=== PATIENT | female | born 1990 | race American Indian/Alaskan Native ===

== ENCOUNTER 2016-12-20 12:22 | Inpatient (IN) | payer MEDICAID ==
[2016-12-20] MEDS ORDERED: DiphenhydrAMINE 50 mg/ml Inj IV STA ×2 (12:42→16:25)
[2016-12-20] MEDS ORDERED: Sodium Chloride 0.9% 1,000 ML IV STA (13:29)
[2016-12-20] MEDS ORDERED: HYDROmorphone 0.5 mg/0.5 ml ISec ONE (13:32)
[2016-12-20] MEDS ORDERED: DiphenhydrAMINE 50 mg/ml Inj ONE ×2 (13:32→16:29)
--- NOTE | 2016-12-20 13:37 | ED PDOC ---
HPI: Seizure Time Seen by Provider: 12/20/16 12:31 Chief Complaint (Nursing): Seizure Chief Complaint (Provider): Seizure History Per: Patient History/Exam Limitations: no limitations Additional Complaint(s): 26 y/o female with a past medical history of Seizure and sickle cell disease presents to the emergency department via EMS with a complaint of experiencing a seizure earlier this morning. States had a seizure due to her sickle cell pain and takes Dilaudid for the pain. Patient was seen in [place] but signed AMA due to wait and then visited [facility] where she signed AMA for the second time for failure to receive Narcotics. Reports she was in [facility] for acute chest syndrome. Patient is now complaining of lower chest and b/l lower extremity pain. Denies fever, cough, or syncope Of note, patient takes depakote; vimpat and trileptal for seizures and takes aspirin daily after experiencing a small stroke 1 year ago. Past Medical History Reviewed: Historical Data, Nursing Documentation, Vital Signs Vital Signs: Last Vital Signs Temp 97 F L 12/20/16 15:05 Pulse 92 H 12/20/16 15:05 Resp 18 12/20/16 15:05 BP 119/70 12/20/16 15:05 Pulse Ox 100 12/20/16 18:50 - Medical History PMH: Asthma, Seizures, Sickle Cell Disease - Surgical History Surgical History: No Surg Hx - Family History Family History: States: Unknown Family Hx - Immunization History Hx Tetanus Toxoid Vaccination: Yes Hx Influenza Vaccination: Yes Hx Pneumococcal Vaccination: Yes - Home Medications Home Medications: Ambulatory Orders Medication Instructions Recorded Aspirin 81 mg PO DAILY 12/20/16 DULoxetine [Cymbalta] 30 mg PO DAILY 12/20/16 DiphenhydrAMINE [Benadryl] 50 mg PO Q4H PRN 12/20/16 Divalproex [Depakote DR] 1,000 mg PO BID 12/20/16 Escitalopram [Lexapro] 20 mg PO HS 12/20/16 Famotidine [Pepcid] 20 mg PO DAILY PRN 12/20/16 Folic Acid 1 mg PO DAILY 12/20/16 HYDROmorphone [Dilaudid] 4 mg PO Q4H PRN 12/20/16 Lacosamide [Vimpat] 600 mg PO BID 05/19/17 Medroxyprogesterone Acetate 150 mg IM Q90D 12/20/16 [Depo-Provera] Oxcarbazepine [Trileptal] 300 mg PO BID 12/20/16 Trazodone HCl 150 mg PO HS 12/20/16 - Allergies Allergies/Adverse Reactions: Allergies Allergy/AdvReac Type Severity Reaction Status Date / Time ANOOP Inhibitors Allergy Verified 12/20/16 10:56 ketorolac [From Toradol] Allergy Verified 12/20/16 10:56 levetiracetam [From Keppra] Allergy Verified 12/20/16 10:56 morphine Allergy Verified 12/20/16 10:56 Review of Systems ROS Statement: Except As Marked, All Systems Reviewed And Found Negative Constitutional: Negative for: Fever Cardiovascular: Positive for: Chest Pain (Lower chest pain) Respiratory: Negative for: Cough Musculoskeletal: Positive for: Leg Pain (b/l) Neurological: Positive for: Seizures. Negative for: Other (Syncope) Physical Exam - Reviewed Nursing Documentation Reviewed: Yes Vital Signs Reviewed: Yes - Physical Exam Appears: Positive for: Non-toxic, No Acute Distress Head Exam: Positive for: ATRAUMATIC, NORMOCEPHALIC Skin: Positive for: Normal Color, Warm, Dry Eye Exam: Positive for: Normal appearance. Negative for: Scleral icterus ENT: Positive for: Normal ENT Inspection. Negative for: Pharyngeal Erythema Neck: Positive for: Normal, Supple Cardiovascular/Chest: Positive for: Tachycardia (of 105 bpm with regular rhythm) . Negative for: Murmur Respiratory: Positive for: Normal Breath Sounds. Negative for: Accessory Muscle Use, Respiratory Distress Gastrointestinal/Abdominal: Positive for: Normal Exam, Soft. Negative for: Tenderness Extremity: Positive for: Normal ROM Neurologic/Psych: Positive for: Alert, Oriented - Laboratory Results Result Diagrams: 12/20/16 13:20 12/20/16 13:20 - ECG O2 Sat by Pulse Oximetry: 100 (RA) Pulse Ox Interpretation: Normal Medical Decision Making Medical Decision Making: Time: 12:31 Initial impression: Moderate Seizure Activity Initial plan: --Type and Screen Stat --Electrocardiogram Stat --COMP Metabolic Panel --Valproic Acid STAT --EKG-ED (EDNURTX) Stat --CBC w/ differential --Partial Thromboplastin Time (COAG) --Prothrombin Time (COAG) --Reticulocyte Count Stat --Chest Two Views (PA/LAT) (RAD) --Benadryl 25 mg IV Stat --Hydromorphone 2 mg IV --Sodium Chloride 1,000 ml IV 1,000 mls/hr --Urinalysis Stat --Revaluation labs reviewed Retic count mod elevation Hgb 10.8 no prior to compare. pt said had PRBC transfusion 1 week ago when admitted for PNA and seizure depakote <10 HCG neg chem unremarkable Awaiting UA CXR no acute infiltrate per radiologist EKG interpreted by me as no acute ST changes sinus 99bpm Pt received IVF and 2 doses dilaudid, remains w symptoms and requesting admission to hospital. Given seizure, subtherapetic valproic acid, admit Obs tele for further care. 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 Scribe Attestation: Documented by Keerthi Juarez, acting as a scribe for Александр Lechuga MD. Provider Scribe Attestation: All medical record entries made by the Scribe were at my direction and personally dictated by me. I have reviewed the chart and agree that the record accurately reflects my personal performance of the history, physical exam, medical decision making, and the department course for this patient. I have also personally directed, reviewed, and agree with the discharge instructions and disposition. Disposition - Clinical Impression Clinical Impression: Epileptic seizures, Sickle cell crisis - Patient ED Disposition Is Patient to be Admitted: Yes Counseled Patient/Family Regarding: Studies Performed - Disposition Disposition Time: 17:25 Condition: STABLE
[2016-12-20 14:18] LABS: BASO # 0.1 K/uL (0.0-0.2); BASO % 0.7 % (0.0-2.0); EOS # 0.2 K/uL (0.0-0.7); EOS % 1.7 % (0.0-4.0); HEMATOCRIT 31.4 % (34.0-47.0); LYMPH # 2.7 K/uL (1.0-4.3); LYMPH % 30.2 % (20.0-40.0); MEAN CELL VOLUME 94.9 fl (81.0-99.0); MEAN CORPUSCULAR HEMOGLOBIN 31.5 pg (27.0-31.0); MEAN CORPUSCULAR HGB CONC 33.2 g/dL (33.0-37.0); MEAN PLATELET VOLUME 8.6 fl (7.2-11.7); MONO # 1.3 K/uL (0.0-0.8); MONO % 14.5 % (0.0-10.0); NEUT # 4.7 K/uL (1.8-7.0); NEUT % 52.9 % (50.0-75.0); NRBC % 0.5 % (0.0-0.0); RED CELL DISTRIBUTION WIDTH 20.4 % (11.5-14.5)
[2016-12-20 14:30] LABS: ALKALINE PHOSPHATASE 105 U/L (38-126); ALT/SGPT 19 U/L (9-52); AST/SGOT 38 U/L (14-36); BILIRUBIN,TOTAL 1.1 mg/dl (0.2-1.3); BLOOD UREA NITROGEN 13 mg/dl (7-17); CALCIUM 9.9 mg/dL (8.4-10.2); CARBON DIOXIDE 24 mmol/L (22-30); CHLORIDE 106 mmol/L (98-107); GFR AFRICAN-AMERICAN > 60; GLUCOSE,RANDOM 96 mg/dL (65-105); POTASSIUM 4.1 MMOL/L (3.6-5.0); SODIUM 139 mmol/l (132-148); TOTAL PROTEIN 7.8 G/DL (6.3-8.2)
[2016-12-20 15:25] LABS: PARTIAL THROMBOPLASTIN TIME 22.1 SECONDS (23.3-32.5)
--- NOTE | 2016-12-20 16:19 | RAD ---
HISTORY: cough hx acute chest/sickle cell COMPARISON: No prior. TECHNIQUE: Chest PA and lateral FINDINGS: LUNGS: In situ left IJ MediPort with tip in the SVC. Suspect minor bibasilar atelectasis. PLEURA: No significant pleural effusion identified. No pneumothorax apparent. CARDIOVASCULAR: Note made of a a correlate radiopaque density in the AP window on and/or overlying the aortic arch. Rule out prior era. OSSEOUS STRUCTURES: Very minor multilevel degenerative spondylosis of the thoracic spine minor chronic appearing anterior wedge deformities of least 2, possibly 3 segments mid to lower thoracic vertebral body segments. VISUALIZED UPPER ABDOMEN: Normal. OTHER FINDINGS: None. IMPRESSION: Suspect minor bibasilar atelectasis. In situ left IJ central venous line as above
[2016-12-20 16:37] LABS: RBC URINE 3 /hpf (0-3); URINE BACTERIA RARE (<OCC); URINE BILIRUBIN NEGATIVE (NEGATIVE); URINE BLOOD NEGATIVE (NEGATIVE); URINE COLOR YELLOW (YELLOW); URINE GLUCOSE (UA) NEG (Normal); URINE KETONE NEGATIVE (NEGATIVE); URINE LEUKOCYTE ESTERASE NEG Leu/uL (Negative); URINE PROTEIN 100 mg/dL (NEGATIVE); WBC URINE < 1 /hpf (0-5)
--- NOTE | 2016-12-20 21:55 | CARD ---
APPROVED REPORT EKG Measurement Heart [id number] <Conclusion> Normal sinus rhythm Moderate voltage criteria for LVH, may be normal variant Nonspecific T wave abnormality Abnormal ECG
[2016-12-20] MEDS: Sodium Chloride 0.9% 1,000 ML IV SCH (23:10)
[2016-12-20] MEDS: DiphenhydrAMINE 50 mg/ml Inj IVP PRN (23:50)
[2016-12-21] MEDS: Sodium Chloride 0.9% 1,000 ML IV SCH ×3 (05:31→20:00)
[2016-12-21] MEDS: DiphenhydrAMINE 50 mg/ml Inj IVP PRN ×4 (05:35→23:15)
[2016-12-21 08:17] LABS: BASO % 0.5 % (0.0-2.0); EOS # 0.2 K/uL (0.0-0.7); EOS % 3.2 % (0.0-4.0); HEMATOCRIT 29.3 % (34.0-47.0); LYMPH # 2.5 K/uL (1.0-4.3); LYMPH % 36.2 % (20.0-40.0); MEAN CELL VOLUME 94.5 fl (81.0-99.0); MEAN CORPUSCULAR HEMOGLOBIN 31.4 pg (27.0-31.0); MEAN CORPUSCULAR HGB CONC 33.2 g/dL (33.0-37.0); MEAN PLATELET VOLUME 8.4 fl (7.2-11.7); MONO % 15.2 % (0.0-10.0); NEUT % 44.9 % (50.0-75.0); RED CELL DISTRIBUTION WIDTH 19.8 % (11.5-14.5); WHITE BLOOD COUNT 6.8 K/uL (4.8-10.8)
[2016-12-21] MEDS: Divalproex 500 mg DR(BID formulation) PO SCH ×2 (08:23→16:59)
[2016-12-21 08:35] LABS: ALKALINE PHOSPHATASE 94 U/L (38-126); ALT/SGPT 16 U/L (9-52); AST/SGOT 38 U/L (14-36); BLOOD UREA NITROGEN 9 mg/dl (7-17); CALCIUM 9.6 mg/dL (8.4-10.2); CARBON DIOXIDE 22 mmol/L (22-30); CHLORIDE 111 mmol/L (98-107); GFR AFRICAN-AMERICAN > 60; GLUCOSE,RANDOM 86 mg/dL (65-105); POTASSIUM 4.3 MMOL/L (3.6-5.0); SODIUM 140 mmol/l (132-148)
--- NOTE | 2016-12-21 13:02 | CP.PCM.CON ---
History of Present Illness - History of Present Illness History of Present Illness: 26 year old female with a history of CVA, seizure disorder, sickle cell anemia, admitted s/p seizure and sickle cell pain crisis. The patient reports to having a seizure which exacerbated her sickle cell pain. She normally follows with a physical education instructor in [place] but is visiting her Father in the area. She was recently hospitalized a month ago for a severe sickle crisis with acute chest syndrome. She reports her hgb dropped to 5 and she required PRBC transfusion support. She currently reports pain in her back and legs. Her pain is consistent with prior sickle cell crisis. She denies shortness of breath and chest pain. Past medical history: CVA, seizure, disorder, sickle cell anemia Past surgical history: Cholecystectomy Family history: Parents have sickle trait Social history: Denies tobacco, alcohol, and illicit drug use. Allergies: Multiple, see allergy list Review of systems: All remaining review of systems including HEENT, cardiovascular, respiratory, gastrointestinal, genitourinary, musculoskeletal, dermatologic, neurologic, and psychiatric are negative unless mentioned in the HPI. Past Patient History - Past Social History Smoking Status: Never Smoked - CARDIAC Hx Cardiac Disorders: No - PULMONARY Hx Respiratory Disorders: Yes Hx Asthma: Yes - NEUROLOGICAL Hx Neurological Disorder: Yes (seizure) - HEENT Hx HEENT Problems: No - RENAL Hx Chronic Kidney Disease: No - ENDOCRINE/METABOLIC Hx Endocrine Disorders: No - HEMATOLOGICAL/ONCOLOGICAL Hx Blood Disorders: Yes Hx Sickle Cell Disease: Yes - INTEGUMENTARY Hx Dermatological Problems: No - MUSCULOSKELETAL/RHEUMATOLOGICAL Hx Musculoskeletal Disorders: Yes Hx Falls: Yes - GASTROINTESTINAL Hx Gastrointestinal Disorders: No - GENITOURINARY/GYNECOLOGICAL Hx Genitourinary Disorders: No - PSYCHIATRIC Hx Psychophysiologic Disorder: No Hx Substance Use: No - SURGICAL HISTORY Hx Surgeries: Yes Other/Comment: left chest wall port - ANESTHESIA Hx Anesthesia: Yes Hx Anesthesia Reactions: No Meds Allergies/Adverse Reactions: Allergies Allergy/AdvReac Type Severity Reaction Status Date / Time ANOOP Inhibitors Allergy SWELLING Verified 12/20/16 23:38 ketorolac [From Toradol] Allergy URTICARIA Verified 12/20/16 23:38 levetiracetam [From Keppra] Allergy HEADACHE Verified 12/20/16 23:38 morphine Allergy URTICARIA Verified 12/20/16 23:38 hydroxyurea AdvReac HEADACHE Verified 12/20/16 23:38 - Medications Medications: Current Medications Aspirin (Aspirin Chewable) 81 mg PO DAILY [facility] Last Admin: 12/21/16 08:22 Dose: 81 mg Diphenhydramine HCl (Benadryl) 50 mg PO Q4H PRN PRN Reason: Itching / Pruritus Diphenhydramine HCl (Benadryl) 25 mg IVP Q6 PRN PRN Reason: Itching / Pruritus Last Admin: 12/21/16 11:32 Dose: 25 mg Divalproex Sodium (Depakote Dr(*Bid*)) 1,000 mg PO BID [facility] Last Admin: 12/21/16 08:23 Dose: 1,000 mg Duloxetine HCl (Cymbalta) 30 mg PO DAILY [facility] Last Admin: 12/21/16 08:21 Dose: 30 mg Escitalopram Oxalate (Lexapro) 20 mg PO [facility] Famotidine (Pepcid) 20 mg PO DAILY PRN PRN Reason: Heartburn Folic Acid (Folic Acid) 1 mg PO DAILY [facility] Last Admin: 12/21/16 08:23 Dose: 1 mg Hydromorphone HCl (Dilaudid) 2 mg IVP Q6 PRN PRN Reason: Pain, severe (8-10) Last Admin: 12/21/16 11:32 Dose: 2 mg Hydromorphone HCl (Dilaudid) 4 mg PO Q4H PRN PRN Reason: Pain, severe (8-10) Sodium Chloride (Sodium Chloride 0.9%) 1,000 mls @ 150 mls/hr IV .Q6H40M [facility] Stop: 12/21/16 22:14 Last Admin: 12/21/16 05:31 Dose: 150 mls/hr Oxcarbazepine (Trileptal) 300 mg PO BID [facility] Last Admin: 12/21/16 08:20 Dose: 300 mg Trazodone HCl (Desyrel) 150 mg PO [facility] Physical Exam - Head Exam Head Exam: ATRAUMATIC - Eye Exam Eye Exam: Normal appearance - ENT Exam ENT Exam: Mucous Membranes Dry - Respiratory Exam Respiratory Exam: NORMAL BREATHING PATTERN - Cardiovascular Exam Cardiovascular Exam: +S1, +S2 - GI/Abdominal Exam GI & Abdominal Exam: Normal Bowel Sounds - Extremities Exam Extremities exam: Positive for: normal inspection Results - Vital Signs Recent Vital Signs: Last Vital Signs Temp 98.7 F 12/21/16 08:40 Pulse 89 05/20/17 08:40 Resp 20 12/21/16 08:40 BP 112/75 12/21/16 08:40 Pulse Ox 99 12/21/16 08:40 - Labs Result Diagrams: 12/21/16 05:30 12/21/16 05:30 Labs: Laboratory Results - last 24 hr 12/21/16 12/21/16 05:30 05:30 WBC 6.8 RBC 3.10 L Hgb 9.7 L Hct 29.3 L MCV 94.5 MCH 31.4 H MCHC 33.2 RDW 19.8 H Plt Count 224 MPV 8.4 Neut % (Auto) 44.9 L Lymph % (Auto) 36.2 [place] % (Auto) 15.2 H Eos % (Auto) 3.2 Baso % (Auto) 0.5 Neut # 3.0 Lymph # 2.5 [place] # 1.0 H Eos # 0.2 Baso # 0.0 Sodium 140 Potassium 4.3 Chloride 111 H Carbon Dioxide 22 Anion Gap 11 BUN 9 Creatinine 0.6 L Est GFR ( Amer) > 60 Est GFR (Non-Af Amer) > 60 Random Glucose 86 Calcium 9.6 Total Bilirubin 1.0 AST 38 H ALT 16 Alkaline Phosphatase 94 Total Protein 7.0 Albumin 3.6 Globulin 3.4 Albumin/Globulin Ratio 1.0 Assessment & Plan (1) Sickle cell pain crisis Assessment and Plan: IV fluids, pain meds, folic acid, 02 via [place] will order hemoglobin electropheresis to confirm sickle cell anemia Okay to access [facility] Thank you for this interesting consult. Status: Acute
--- NOTE | 2016-12-21 20:38 | HP ---
CHIEF COMPLAINT: Generalized body pain. HISTORY OF PRESENT ILLNESS: This is a 26-year-old female, known case of sickle cell anemia, seizure disorder, history of CVA who was having sickle cell crisis like pain, so the patient was brought to E mergency Room and was admitted for further management. REVIEW OF SYSTEMS: Positive for generalized pain. Review of system otherwise is negative for headac he, dizziness, syncope, loss of consciousness, chest pain, shortness of breath, nausea, vomiting, shabana rrhea, constipation or any other neurological symptoms. Review of systems of all other organ systems is unremarkable. PAST MEDICAL HISTORY: Significant for sickle cell anemia, seizure disorder, CVA. PAST SURGICAL HISTORY: Remarkable for cholecystectomy. PERSONAL HISTORY: The patient is currently a nonsmoker, nondrinker, no substance abuse. MEDICATIONS: The patient is on multiple medications, which is as per reconciliation sheet. ALLERGIES: THE PATIENT IS ALLERGIC TO MULTIPLE MEDICATIONS, WHICH IS ALSO PER ORDER SHEET. FAMILY HISTORY: Also significant for sickle cell trait. PHYSICAL EXAMINATION: GENERAL: Well-built, well-nourished, overweight 26-year-old female in no acute distress. VITAL SIGNS: Temperature 98.7, pulse 89, respirations 20, blood pressure 112/75, saturation 99%. HEENT: Pupils reacting to light. Normocephalic, atraumatic skull. NECK: No JVD, no thyromegaly, no lymphadenopathy, no nystagmus. HEART: S1, S2 normal, regular. No significant murmur, gallop or rub is heard. LUNGS: Shows good bilateral air entry. No rales or rhonchi. ABDOMEN: Soft, nontender, no organomegaly, no fluid. Bowel sounds are plus. EXTREMITIES: No edema, no calf swelling, no tenderness. No acute ischemia. CENTRAL NERVOUS SYSTEM: The patient is alert, awake, oriented x 3. There is no sign of any acute gr oss focal motor or sensory neurological deficit. DIAGNOSTIC DATA: Available diagnostic data reviewed. Urinalysis is negative. Depakote level is les s than 10. WBC 6.8, hemoglobin 9.7, hematocrit 29, platelets 224. Retic count is 3.5. Sodium , potassium 4.3, chloride 111, bicarbonate 22, BUN 9, creatinine 0.6. SMA-12 is unremarkable. ADMITTING IMPRESSION: Sickle cell crisis, sickle cell disease, cerebrovascular accident, seizure dis order. PLAN: As ordered. Case and plan discussed with patient. Mp Yanes MD cc: [id number] TT: 12/21/2016 20:37:59 radha
[2016-12-21] MEDS ORDERED: Patient's Own Med (Trazodone Hcl [Trazodone Hcl] 150 MG) PO SCH (22:00)
[2016-12-22] MEDS: Sodium Chloride 0.9% 1,000 ML IV SCH ×5 (03:17→23:27)
[2016-12-22] MEDS: DiphenhydrAMINE 50 mg/ml Inj IVP PRN ×4 (04:53→22:43)
[2016-12-22 07:44] LABS: HEMATOCRIT 27.8 % (34.0-47.0); MEAN CELL VOLUME 94.6 fl (81.0-99.0); MEAN CORPUSCULAR HEMOGLOBIN 31.7 pg (27.0-31.0); MEAN CORPUSCULAR HGB CONC 33.5 g/dL (33.0-37.0); RED CELL DISTRIBUTION WIDTH 19.7 % (11.5-14.5); WHITE BLOOD COUNT 6.4 K/uL (4.8-10.8)
[2016-12-22 07:54] LABS: ALKALINE PHOSPHATASE 86 U/L (38-126); ALT/SGPT 15 U/L (9-52); AST/SGOT 37 U/L (14-36); BLOOD UREA NITROGEN 7 mg/dl (7-17); CALCIUM 9.2 mg/dL (8.4-10.2); CARBON DIOXIDE 22 mmol/L (22-30); CHLORIDE 108 mmol/L (98-107); GFR AFRICAN-AMERICAN > 60; GLUCOSE,RANDOM 93 mg/dL (65-105); POTASSIUM 4.1 MMOL/L (3.6-5.0); SODIUM 138 mmol/l (132-148); TOTAL PROTEIN 7.1 G/DL (6.3-8.2)
[2016-12-22] MEDS: Divalproex 500 mg DR(BID formulation) PO SCH ×2 (09:46→16:38)
--- NOTE | 2016-12-22 09:58 | PN ---
DATE: 12/22/2016 The patient is seen and examined. Interim events noted. The patient remains on the regular medical floor. The patient is sleeping, arousable. On arousing, the patient complains of pain not adequatel y controlled, although the patient does seem very comfortable, and according to the nursing staff, th e patient was not observing pain. PHYSICAL EXAMINATION: GENERAL: The patient is in no acute distress. VITAL SIGNS: Stable. HEART: S1, S2 normal, regular. LUNGS: Good bilateral air entry. ABDOMEN: Soft, nontender. EXTREMITIES: No calf swelling, no tenderness, no acute ischemia. CENTRAL NERVOUS SYSTEM: Essentially unchanged. DIAGNOSTIC DATA: Available diagnostic data reviewed. Overall, the patient's general medical condition is stable. Pain seems to be adequately controlled, although the patient is requesting increased frequency of medications. We will observe the patient. Mp Yanes MD cc: [id number] TT: 12/22/2016 09:58:16 Confirmation # [id number] Dictation # [id number] jn
[2016-12-23] MEDS: DiphenhydrAMINE 50 mg/ml Inj IVP PRN ×5 (04:46→23:50)
[2016-12-23] MEDS: Sodium Chloride 0.9% 1,000 ML IV SCH ×2 (05:51→18:44)
[2016-12-23 07:32] LABS: HEMATOCRIT 27.9 % (34.0-47.0); MEAN CELL VOLUME 93.9 fl (81.0-99.0); MEAN CORPUSCULAR HEMOGLOBIN 31.4 pg (27.0-31.0); MEAN CORPUSCULAR HGB CONC 33.4 g/dL (33.0-37.0); RED CELL DISTRIBUTION WIDTH 19.7 % (11.5-14.5); WHITE BLOOD COUNT 5.8 K/uL (4.8-10.8)
[2016-12-23 07:46] LABS: ALKALINE PHOSPHATASE 90 U/L (38-126); ALT/SGPT 19 U/L (9-52); AST/SGOT 28 U/L (14-36); BILIRUBIN,TOTAL 0.9 mg/dl (0.2-1.3); BLOOD UREA NITROGEN 7 mg/dl (7-17); CALCIUM 9.2 mg/dL (8.4-10.2); CARBON DIOXIDE 21 mmol/L (22-30); CHLORIDE 110 mmol/L (98-107); GFR AFRICAN-AMERICAN > 60; GLUCOSE,RANDOM 95 mg/dL (65-105); POTASSIUM 4.2 MMOL/L (3.6-5.0); SODIUM 138 mmol/l (132-148); TOTAL PROTEIN 7.2 G/DL (6.3-8.2)
--- NOTE | 2016-12-23 07:54 | PN ---
DATE: 12/23/2016 The patient seen and examined. Interim events noted. The patient complains of pain and every 6 hour s does not seem to hold. PHYSICAL EXAMINATION: GENERAL: The patient is in no acute distress. VITAL SIGNS: Stable. HEART: S1, S2 normal, regular. LUNGS: Good bilateral air entry. ABDOMEN: Soft, nontender. EXTREMITIES: No calf swelling, no tenderness, no acute ischemia. CENTRAL NERVOUS SYSTEM: Essentially unchanged. DIAGNOSTIC DATA: Available reviewed. Overall, patient's general medical condition is stable, but continues to have pain component as well. PLAN: As ordered. Mp Yanes MD cc: [id number] TT: 12/23/2016 07:53:29 Confirmation # [id number] Dictation # [id number]
[2016-12-23] MEDS: Divalproex 500 mg DR(BID formulation) PO SCH ×2 (08:55→18:40)
--- NOTE | 2016-12-23 11:58 | CP.PCM.CON ---
History of Present Illness - History of Present Illness History of Present Illness: 26 yo woman w/ Sickle Cell Crisis, history of CVA with residual left hemiparesis is referred for pain management. Patient has been admitted for 3 days and had been on 2mg of Dilaudid IV q6h until this morning, when it was changed to q4h. Patient requires Benadryl 50mg with the Dilaudid administration as well due to itching. She usually goes to [facility] for her crisis, where she would get Dilaudid IV 4mg for pain management. She has allergy to Toradol and Morphine. At home, her pain is managed by her PMD and pharmacy picking technician, and she takes Dilaudid PO 4mg to 8mg at least once or twice a day for the pain. She was placed on Oxycontin at one day and responded to it well. Past Patient History - Past Social History Smoking Status: Never Smoked - CARDIAC Hx Cardiac Disorders: No - PULMONARY Hx Respiratory Disorders: Yes Hx Asthma: Yes - NEUROLOGICAL Hx Neurological Disorder: Yes (seizure) - HEENT Hx HEENT Problems: No - RENAL Hx Chronic Kidney Disease: No - ENDOCRINE/METABOLIC Hx Endocrine Disorders: No - HEMATOLOGICAL/ONCOLOGICAL Hx Blood Disorders: Yes Hx Sickle Cell Disease: Yes - INTEGUMENTARY Hx Dermatological Problems: No - MUSCULOSKELETAL/RHEUMATOLOGICAL Hx Musculoskeletal Disorders: Yes Hx Falls: Yes - GASTROINTESTINAL Hx Gastrointestinal Disorders: No - GENITOURINARY/GYNECOLOGICAL Hx Genitourinary Disorders: No - PSYCHIATRIC Hx Psychophysiologic Disorder: No Hx Substance Use: No - SURGICAL HISTORY Hx Surgeries: Yes Other/Comment: left chest wall port - ANESTHESIA Hx Anesthesia: Yes Hx Anesthesia Reactions: No Meds Allergies/Adverse Reactions: Allergies Allergy/AdvReac Type Severity Reaction Status Date / Time ANOOP Inhibitors Allergy SWELLING Verified 12/20/16 23:38 ketorolac [From Toradol] Allergy URTICARIA Verified 12/20/16 23:38 levetiracetam [From Keppra] Allergy HEADACHE Verified 12/20/16 23:38 morphine Allergy URTICARIA Verified 12/20/16 23:38 hydroxyurea AdvReac HEADACHE Verified 12/20/16 23:38 - Medications Medications: Current Medications Aspirin (Aspirin Chewable) 81 mg PO DAILY [facility] Last Admin: 12/23/16 08:54 Dose: 81 mg Diphenhydramine HCl (Benadryl) 50 mg PO Q4H PRN PRN Reason: Itching / Pruritus Diphenhydramine HCl (Benadryl) 25 mg IVP Q6 PRN PRN Reason: Itching / Pruritus Last Admin: 12/23/16 04:46 Dose: 25 mg Divalproex Sodium (Depakote Dr(*Bid*)) 1,000 mg PO BID [facility] Last Admin: 12/23/16 08:55 Dose: 1,000 mg Duloxetine HCl (Cymbalta) 30 mg PO DAILY [facility] Last Admin: 12/23/16 08:55 Dose: 30 mg Escitalopram Oxalate (Lexapro) 20 mg PO [facility] Last Admin: 12/22/16 22:32 Dose: 20 mg Famotidine (Pepcid) 20 mg PO DAILY PRN PRN Reason: Heartburn Last Admin: 12/23/16 08:56 Dose: 20 mg Folic Acid (Folic Acid) 1 mg PO DAILY [facility] Last Admin: 12/23/16 08:56 Dose: 1 mg Hydromorphone HCl (Dilaudid) 2 mg IVP Q4 [facility] Last Admin: 12/23/16 08:50 Dose: 2 mg Sodium Chloride (Sodium Chloride 0.9%) 1,000 mls @ 150 mls/hr IV .Q6H40M [facility] Last Admin: 12/23/16 05:51 Dose: 150 mls/hr Oxcarbazepine (Trileptal) 300 mg PO BID [facility] Last Admin: 12/23/16 08:56 Dose: 300 mg Trazodone HCl (Desyrel) 150 mg PO [facility] Last Admin: 12/22/16 22:33 Dose: 150 mg Physical Exam - Respiratory Exam Respiratory Exam: Chest Wall Tenderness - GI/Abdominal Exam GI & Abdominal Exam: Normal Bowel Sounds - Back Exam Back exam: tenderness, vertebral tenderness Results - Vital Signs Recent Vital Signs: Last Vital Signs Temp 99.1 F 12/23/16 07:55 Pulse 91 H 12/23/16 07:55 Resp 17 12/23/16 07:55 BP 99/63 L 12/23/16 07:55 Pulse Ox 97 12/23/16 07:55 - Labs Result Diagrams: 12/23/16 06:50 12/23/16 06:50 Labs: Laboratory Results - last 24 hr 12/23/16 12/23/16 06:50 06:50 WBC 5.8 RBC 2.97 L Hgb 9.3 L Hct 27.9 L MCV 93.9 MCH 31.4 H MCHC 33.4 RDW 19.7 H Plt Count 260 Sodium 138 Potassium 4.2 Chloride 110 H Carbon Dioxide 21 L Anion Gap 11 BUN 7 Creatinine 0.5 L Est GFR ( Amer) > 60 Est GFR (Non-Af Amer) > 60 Random Glucose 95 Calcium 9.2 Total Bilirubin 0.9 AST 28 ALT 19 Alkaline Phosphatase 90 Total Protein 7.2 Albumin 3.6 Globulin 3.6 Albumin/Globulin Ratio 1.0 Assessment & Plan (1) Sickle cell crisis Assessment and Plan: 26 yo woman w/ Sickle Cell Crisis has severe pain and increase opioid requirement due to tolerance. - change Dilaudid IV to 3mg q4h PRN - increase Cymbalta to 60mg qhs - Benadryl with Dilaudid as needed, not to exceed 300mg/day Status: Acute
[2016-12-23 12:54] LABS: HEMATOCRIT 29.6 % (35.0-45.0); HEMOGLOBIN 9.7 g/dL (11.7-15.5)
--- NOTE | 2016-12-23 14:18 | PQF GENQUE ---
Dr. Yanes, Please clarify the Status of the CVA listed in the Admitting Impression of the draft H and P: i.e.: hx. of CVA versus Acute CVA etc. OR: Other explanation of clinical findings H and P: draft: HPI and PMH: list a hx. 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 There is no sign of any acute gross focal motor or sensory neurological deficit. Admitting Impression : Sickle cell crisis, sickle cell disease, cerebrovascular accident, seizure disorder. Pain Management note:: Sickle Cell Crisis, history of CVA with residual left hemiparesis is referred for pain management. This form is a permanent part of the medical record Clarification of your documentation is requested to better reflect the severity of illness and intensity of treatment of your patient. Indicators present [] Specify: [] [] Specify: [] [] Specify: [] [] Specify: [] Location in the medical record that reflects the above clinical findings: [] Treatment Provided: [] PHYSICIAN'S RESPONSE Based on your medical judgment of the clinical indicators outlined above please clarify the following: [] Practitioner response [] If unable to determine, please check the box, sign and date. Present On Admission (POA) Indicator: [] Present at the time of admission [] Not present at the time of admission [] Clinically Undetermined In responding to this query, please exercise your independent professional judgment. The fact that a question is asked does not imply that any particular answer is desired or expected. Thank you for your clarification on this documentation. If you have any questions please call. * Thank you, Vanessa Gonzalez RN BSN ext. #[phone] MTDD
[2016-12-23] MEDS: Bacitracin OINT 15GM TOP SCH (22:59)
[2016-12-24] MEDS: Sodium Chloride 0.9% 1,000 ML IV SCH ×4 (01:53→22:06)
[2016-12-24] MEDS: DiphenhydrAMINE 50 mg/ml Inj IVP PRN ×6 (03:44→23:37)
[2016-12-24 07:47] LABS: HEMATOCRIT 26.8 % (34.0-47.0); MEAN CELL VOLUME 94.8 fl (81.0-99.0); MEAN CORPUSCULAR HEMOGLOBIN 31.4 pg (27.0-31.0); MEAN CORPUSCULAR HGB CONC 33.1 g/dL (33.0-37.0); RED CELL DISTRIBUTION WIDTH 19.5 % (11.5-14.5); WHITE BLOOD COUNT 5.2 K/uL (4.8-10.8)
[2016-12-24 08:03] LABS: ALKALINE PHOSPHATASE 83 U/L (38-126); ALT/SGPT 7 U/L (9-52); AST/SGOT 31 U/L (14-36); BLOOD UREA NITROGEN 5 mg/dl (7-17); CALCIUM 9.2 mg/dL (8.4-10.2); CARBON DIOXIDE 24 mmol/L (22-30); CHLORIDE 112 mmol/L (98-107); GFR AFRICAN-AMERICAN > 60; GLUCOSE,RANDOM 106 mg/dL (65-105); POTASSIUM 4.2 MMOL/L (3.6-5.0); SODIUM 144 mmol/l (132-148); TOTAL PROTEIN 6.6 G/DL (6.3-8.2)
[2016-12-24] MEDS: Divalproex 500 mg DR(BID formulation) PO SCH ×2 (09:19→16:03)
[2016-12-24] MEDS: Bacitracin OINT 15GM TOP SCH ×2 (09:19→18:03)
--- NOTE | 2016-12-24 11:24 | CP.PCM.PN ---
<Makenna Duran - Last Filed: 12/24/16 11:21> Subjective - Date & Time of Evaluation Date of Evaluation: 12/24/16 Time of Evaluation: 11:21 - Subjective Subjective: evaluated with attending. no overnight events. pain well controlled. c/o generalized pain. tolerating PO. Denies chest pain, SOB. Objective - Vital Signs/Intake and Output Vital Signs (last 24 hours): Temp Pulse Resp BP Pulse Ox 99.2 F 98 H 20 103/63 99 12/24/16 07:59 12/24/16 07:59 12/24/16 07:59 12/24/16 07:59 12/24/16 07:59 - Medications Medications: Current Medications Aspirin (Aspirin Chewable) 81 mg PO DAILY [facility] Last Admin: 12/24/16 09:19 Dose: 81 mg Bacitracin (Bacitracin Oint) 1 applic TOP BID [facility] Last Admin: 12/24/16 09:19 Dose: 1 applic Diphenhydramine HCl (Benadryl) 50 mg IVP Q4 PRN PRN Reason: Itching / Pruritus Last Admin: 12/24/16 03:44 Dose: 50 mg Diphenhydramine HCl (Benadryl) 25 mg IVP Q4 PRN PRN Reason: Itching / Pruritus Last Admin: 12/24/16 07:41 Dose: 25 mg Divalproex Sodium (Depakote Dr(*Bid*)) 1,000 mg PO BID [facility] Last Admin: 12/24/16 09:19 Dose: 1,000 mg Duloxetine HCl (Cymbalta) 60 mg PO [facility] Last Admin: 12/23/16 21:29 Dose: 60 mg Escitalopram Oxalate (Lexapro) 20 mg PO [facility] Last Admin: 12/23/16 21:27 Dose: 20 mg Famotidine (Pepcid) 20 mg PO DAILY PRN PRN Reason: Heartburn Last Admin: 12/24/16 09:20 Dose: 20 mg Folic Acid (Folic Acid) 1 mg PO DAILY [facility] Last Admin: 12/24/16 09:20 Dose: 1 mg Hydromorphone HCl (Dilaudid) 3 mg IVP Q4 PRN PRN Reason: Pain, severe (8-10) Last Admin: 12/24/16 07:42 Dose: 3 mg Sodium Chloride (Sodium Chloride 0.9%) 1,000 mls @ 150 mls/hr IV .Q6H40M [facility] Last Admin: 12/24/16 09:18 Dose: 150 mls/hr Oxcarbazepine (Trileptal) 300 mg PO BID [facility] Last Admin: 12/24/16 09:20 Dose: 300 mg Trazodone HCl (Desyrel) 150 mg PO HS [facility] Last Admin: 12/23/16 21:28 Dose: 150 mg - Labs Labs: 12/24/16 07:00 12/24/16 07:00 PT 10.5 SECONDS (9.6-11.2) 12/20/16 13:20 INR 1.01 (0.92-1.08) 12/20/16 13:20 APTT 22.1 SECONDS (23.3-32.5) L 12/20/16 13:20 - Constitutional Appears: Non-toxic, No Acute Distress - Head Exam Head Exam: ATRAUMATIC, NORMAL INSPECTION - Eye Exam Eye Exam: Normal appearance - ENT Exam ENT Exam: Mucous Membranes Moist - Neck Exam Neck Exam: Normal Inspection - Respiratory Exam Respiratory Exam: Clear to Ausculation Bilateral - Cardiovascular Exam Cardiovascular Exam: REGULAR RHYTHM - GI/Abdominal Exam GI & Abdominal Exam: Soft - Extremities Exam Extremities Exam: Normal Inspection - Back Exam Back Exam: NORMAL INSPECTION - Neurological Exam Neurological Exam: Alert, Oriented x3 - Skin Skin Exam: Dry, Warm Assessment and Plan (1) Sickle cell pain crisis Assessment & Plan: -H/O on board, appreciate input -pain management on board, appreciate input -pain control -MIVF -O2 -monitor SaO2 or SOB. -FU electrophoresis Status: Acute <Yanes,Mp K - Last Filed: 12/27/16 17:50> Objective - Vital Signs/Intake and Output Vital Signs (last 24 hours): Temp Pulse Resp BP Pulse Ox 98.8 F 94 H 20 114/71 96 12/26/16 17:00 12/26/16 17:00 12/26/16 17:00 12/26/16 17:00 12/26/16 17:00 - Labs Labs: 12/26/16 06:45 12/26/16 06:45 PT 10.5 SECONDS (9.6-11.2) 12/20/16 13:20 INR 1.01 (0.92-1.08) 12/20/16 13:20 APTT 22.1 SECONDS (23.3-32.5) L 12/20/16 13:20 Assessment and Plan - Assessment and Plan (Free Text) Assessment: Patient seen and examined with residents in rounds. Case, condition, investigative work up and plan discussed in detail. Agree with residents progress note. Plan: As ordered. (Mp Yanes MD)
--- NOTE | 2016-12-24 19:43 | CP.PCM.PN ---
Subjective - Date & Time of Evaluation Date of Evaluation: 12/24/16 Time of Evaluation: 18:30 - Subjective Subjective: Feeling better, less pain. Objective - Vital Signs/Intake and Output Vital Signs (last 24 hours): Temp Pulse Resp BP Pulse Ox 99.6 F 79 20 111/62 92 L 12/24/16 17:00 12/24/16 16:25 12/24/16 16:25 12/24/16 16:25 12/24/16 16:25 - Medications Medications: Current Medications Aspirin (Aspirin Chewable) 81 mg PO DAILY [facility] Last Admin: 12/24/16 09:19 Dose: 81 mg Bacitracin (Bacitracin Oint) 1 applic TOP BID [facility] Last Admin: 12/24/16 18:03 Dose: 1 applic Diphenhydramine HCl (Benadryl) 50 mg IVP Q4 PRN PRN Reason: Itching / Pruritus Last Admin: 12/24/16 18:45 Dose: 50 mg Diphenhydramine HCl (Benadryl) 25 mg IVP Q4 PRN PRN Reason: Itching / Pruritus Last Admin: 12/24/16 16:00 Dose: 25 mg Divalproex Sodium (Depakote Dr(*Bid*)) 1,000 mg PO BID [facility] Last Admin: 12/24/16 16:03 Dose: 1,000 mg Duloxetine HCl (Cymbalta) 60 mg PO [facility] Last Admin: 12/23/16 21:29 Dose: 60 mg Escitalopram Oxalate (Lexapro) 20 mg PO [facility] Last Admin: 12/23/16 21:27 Dose: 20 mg Famotidine (Pepcid) 20 mg PO DAILY PRN PRN Reason: Heartburn Last Admin: 12/24/16 09:20 Dose: 20 mg Folic Acid (Folic Acid) 1 mg PO DAILY [facility] Last Admin: 12/24/16 09:20 Dose: 1 mg Hydromorphone HCl (Dilaudid) 3 mg IVP Q4 PRN PRN Reason: Pain, severe (8-10) Last Admin: 12/24/16 19:40 Dose: 3 mg Sodium Chloride (Sodium Chloride 0.9%) 1,000 mls @ 150 mls/hr IV .Q6H40M [facility] Last Admin: 12/24/16 16:02 Dose: 150 mls/hr Oxcarbazepine (Trileptal) 300 mg PO BID [facility] Last Admin: 12/24/16 16:03 Dose: 300 mg Trazodone HCl (Desyrel) 150 mg PO HS [facility] Last Admin: 12/23/16 21:28 Dose: 150 mg - Labs Labs: 12/24/16 07:00 12/24/16 07:00 PT 10.5 SECONDS (9.6-11.2) 12/20/16 13:20 INR 1.01 (0.92-1.08) 12/20/16 13:20 APTT 22.1 SECONDS (23.3-32.5) L 12/20/16 13:20 - Head Exam Head Exam: ATRAUMATIC - Eye Exam Eye Exam: Normal appearance - ENT Exam ENT Exam: Mucous Membranes Dry - Respiratory Exam Respiratory Exam: NORMAL BREATHING PATTERN - Cardiovascular Exam Cardiovascular Exam: +S1, +S2 - GI/Abdominal Exam GI & Abdominal Exam: Normal Bowel Sounds - Extremities Exam Extremities Exam: Normal Inspection Assessment and Plan (1) Sickle cell pain crisis Assessment & Plan: IV fluids, pain meds, folic acid, 02 via NC f/u hgb electropheresis Status: Acute
[2016-12-25] MEDS: DiphenhydrAMINE 50 mg/ml Inj IVP PRN ×6 (03:33→23:47)
[2016-12-25] MEDS: Sodium Chloride 0.9% 1,000 ML IV SCH ×2 (03:38→19:35)
[2016-12-25 07:48] LABS: MEAN CELL VOLUME 94.9 fl (81.0-99.0); MEAN CORPUSCULAR HEMOGLOBIN 31.6 pg (27.0-31.0); MEAN CORPUSCULAR HGB CONC 33.3 g/dL (33.0-37.0); RED CELL DISTRIBUTION WIDTH 19.6 % (11.5-14.5); WHITE BLOOD COUNT 5.9 K/uL (4.8-10.8)
[2016-12-25 08:07] LABS: ALKALINE PHOSPHATASE 77 U/L (38-126); ALT/SGPT 11 U/L (9-52); AST/SGOT 39 U/L (14-36); BLOOD UREA NITROGEN 8 mg/dl (7-17); CARBON DIOXIDE 26 mmol/L (22-30); CHLORIDE 111 mmol/L (98-107); GFR AFRICAN-AMERICAN > 60; GLUCOSE,RANDOM 90 mg/dL (65-105); POTASSIUM 4.5 MMOL/L (3.6-5.0); SODIUM 144 mmol/l (132-148); TOTAL PROTEIN 6.5 G/DL (6.3-8.2)
[2016-12-25] MEDS: Bacitracin OINT 15GM TOP SCH ×2 (08:54→18:07)
[2016-12-25] MEDS: Divalproex 500 mg DR(BID formulation) PO SCH ×2 (08:54→18:07)
--- NOTE | 2016-12-25 13:06 | CP.PCM.PN ---
Subjective - Date & Time of Evaluation Date of Evaluation: 12/25/16 Time of Evaluation: 13:00 - Subjective Subjective: Feeling better Objective - Vital Signs/Intake and Output Vital Signs (last 24 hours): Temp Pulse Resp BP Pulse Ox 99.0 F 96 H 20 109/72 100 12/25/16 07:53 12/25/16 07:53 12/25/16 07:53 12/25/16 07:53 12/25/16 07:53 - Medications Medications: Current Medications Aspirin (Aspirin Chewable) 81 mg PO DAILY [facility] Last Admin: 12/25/16 08:55 Dose: 81 mg Bacitracin (Bacitracin Oint) 1 applic TOP BID [facility] Last Admin: 12/25/16 08:54 Dose: 1 applic Diphenhydramine HCl (Benadryl) 50 mg IVP Q4 PRN PRN Reason: Itching / Pruritus Last Admin: 12/25/16 11:38 Dose: 50 mg Diphenhydramine HCl (Benadryl) 25 mg IVP Q4 PRN PRN Reason: Itching / Pruritus Last Admin: 12/25/16 07:31 Dose: 25 mg Divalproex Sodium (Depakote Dr(*Bid*)) 1,000 mg PO BID [facility] Last Admin: 12/25/16 08:54 Dose: 1,000 mg Duloxetine HCl (Cymbalta) 60 mg PO [facility] Last Admin: 12/24/16 21:58 Dose: 60 mg Escitalopram Oxalate (Lexapro) 20 mg PO [facility] Last Admin: 12/24/16 21:58 Dose: 20 mg Famotidine (Pepcid) 20 mg PO DAILY PRN PRN Reason: Heartburn Last Admin: 12/25/16 08:55 Dose: 20 mg Folic Acid (Folic Acid) 1 mg PO DAILY [facility] Last Admin: 12/25/16 08:55 Dose: 1 mg Hydromorphone HCl (Dilaudid) 3 mg IVP Q4 PRN PRN Reason: Pain, severe (8-10) Last Admin: 12/25/16 11:38 Dose: 3 mg Sodium Chloride (Sodium Chloride 0.9%) 1,000 mls @ 150 mls/hr IV .Q6H40M [facility] Last Admin: 12/25/16 03:38 Dose: 150 mls/hr Oxcarbazepine (Trileptal) 300 mg PO BID [facility] Last Admin: 12/25/16 08:55 Dose: 300 mg Trazodone HCl (Desyrel) 150 mg PO HS [facility] Last Admin: 12/24/16 21:59 Dose: 150 mg - Labs Labs: 12/25/16 07:00 12/25/16 07:00 PT 10.5 SECONDS (9.6-11.2) 12/20/16 13:20 INR 1.01 (0.92-1.08) 12/20/16 13:20 APTT 22.1 SECONDS (23.3-32.5) L 12/20/16 13:20 - Head Exam Head Exam: ATRAUMATIC - Eye Exam Eye Exam: Normal appearance - ENT Exam ENT Exam: Mucous Membranes Dry - Respiratory Exam Respiratory Exam: NORMAL BREATHING PATTERN - Cardiovascular Exam Cardiovascular Exam: +S1, +S2 - GI/Abdominal Exam GI & Abdominal Exam: Normal Bowel Sounds - Extremities Exam Extremities Exam: Normal Inspection Assessment and Plan (1) Sickle cell pain crisis Assessment & Plan: IV fluids, folic acid, pain meds, 02 via NC f/u hgb electropheresis Status: Acute
--- NOTE | 2016-12-25 15:07 | CP.PCM.PN ---
Subjective - Date & Time of Evaluation Date of Evaluation: 12/25/16 Time of Evaluation: 15:04 - Subjective Subjective: evaluated with attending. no overnight events. pain well controlled. c/o generalized pain. tolerating PO. Denies chest pain, SOB. Objective - Vital Signs/Intake and Output Vital Signs (last 24 hours): Temp Pulse Resp BP Pulse Ox 99.0 F 96 H 20 109/72 100 12/25/16 07:53 12/25/16 07:53 12/25/16 07:53 12/25/16 07:53 12/25/16 07:53 - Medications Medications: Current Medications Aspirin (Aspirin Chewable) 81 mg PO DAILY [facility] Last Admin: 12/25/16 08:55 Dose: 81 mg Bacitracin (Bacitracin Oint) 1 applic TOP BID [facility] Last Admin: 12/25/16 08:54 Dose: 1 applic Diphenhydramine HCl (Benadryl) 50 mg IVP Q4 PRN PRN Reason: Itching / Pruritus Last Admin: 12/25/16 11:38 Dose: 50 mg Diphenhydramine HCl (Benadryl) 25 mg IVP Q4 PRN PRN Reason: Itching / Pruritus Last Admin: 12/25/16 07:31 Dose: 25 mg Divalproex Sodium (Depakote Dr(*Bid*)) 1,000 mg PO BID [facility] Last Admin: 12/25/16 08:54 Dose: 1,000 mg Duloxetine HCl (Cymbalta) 60 mg PO [facility] Last Admin: 12/24/16 21:58 Dose: 60 mg Escitalopram Oxalate (Lexapro) 20 mg PO [facility] Last Admin: 12/24/16 21:58 Dose: 20 mg Famotidine (Pepcid) 20 mg PO DAILY PRN PRN Reason: Heartburn Last Admin: 12/25/16 08:55 Dose: 20 mg Folic Acid (Folic Acid) 1 mg PO DAILY [facility] Last Admin: 12/25/16 08:55 Dose: 1 mg Hydromorphone HCl (Dilaudid) 3 mg IVP Q4 PRN PRN Reason: Pain, severe (8-10) Last Admin: 12/25/16 11:38 Dose: 3 mg Sodium Chloride (Sodium Chloride 0.9%) 1,000 mls @ 150 mls/hr IV .Q6H40M [facility] Last Admin: 12/25/16 03:38 Dose: 150 mls/hr Oxcarbazepine (Trileptal) 300 mg PO BID [facility] Last Admin: 12/25/16 08:55 Dose: 300 mg Trazodone HCl (Desyrel) 150 mg PO HS [facility] Last Admin: 12/24/16 21:59 Dose: 150 mg - Labs Labs: 12/25/16 07:00 12/25/16 07:00 PT 10.5 SECONDS (9.6-11.2) 12/20/16 13:20 INR 1.01 (0.92-1.08) 12/20/16 13:20 APTT 22.1 SECONDS (23.3-32.5) L 12/20/16 13:20 - Constitutional Appears: Non-toxic, No Acute Distress - Head Exam Head Exam: ATRAUMATIC, NORMAL INSPECTION - Eye Exam Eye Exam: Normal appearance - ENT Exam ENT Exam: Mucous Membranes Moist - Neck Exam Neck Exam: Normal Inspection - Respiratory Exam Respiratory Exam: Clear to Ausculation Bilateral - Cardiovascular Exam Cardiovascular Exam: REGULAR RHYTHM - GI/Abdominal Exam GI & Abdominal Exam: Soft - Extremities Exam Extremities Exam: Normal Inspection - Back Exam Back Exam: NORMAL INSPECTION - Neurological Exam Neurological Exam: Alert, Oriented x3 - Skin Skin Exam: Dry, Warm Assessment and Plan (1) Sickle cell pain crisis Assessment & Plan: -H/O on board, appreciate input -pain management on board, appreciate input -pain control -MIVF -O2 -monitor SaO2 or SOB. -FU electrophoresis Status: Acute
[2016-12-26] MEDS: DiphenhydrAMINE 50 mg/ml Inj IVP PRN ×3 (03:42→12:20)
[2016-12-26] MEDS: Sodium Chloride 0.9% 1,000 ML IV SCH ×2 (03:48→10:10)
[2016-12-26 07:47] VITALS: RESP 20
[2016-12-26 08:01] LABS: HEMATOCRIT 24.3 % (34.0-47.0); MEAN CELL VOLUME 94.6 fl (81.0-99.0); MEAN CORPUSCULAR HEMOGLOBIN 31.6 pg (27.0-31.0); MEAN CORPUSCULAR HGB CONC 33.4 g/dL (33.0-37.0); RED CELL DISTRIBUTION WIDTH 20.1 % (11.5-14.5); WHITE BLOOD COUNT 5.4 K/uL (4.8-10.8)
[2016-12-26 08:19] LABS: ALKALINE PHOSPHATASE 75 U/L (38-126); ALT/SGPT 14 U/L (9-52); AST/SGOT 31 U/L (14-36); BILIRUBIN,TOTAL 0.8 mg/dl (0.2-1.3); BLOOD UREA NITROGEN 6 mg/dl (7-17); CALCIUM 9.1 mg/dL (8.4-10.2); CARBON DIOXIDE 27 mmol/L (22-30); CHLORIDE 110 mmol/L (98-107); GFR AFRICAN-AMERICAN > 60; GLUCOSE,RANDOM 106 mg/dL (65-105); POTASSIUM 4.3 MMOL/L (3.6-5.0); SODIUM 143 mmol/l (132-148); TOTAL PROTEIN 6.3 G/DL (6.3-8.2)
[2016-12-26] MEDS: HYDROmorphone 0.5 mg/0.5 ml ISec IVP PRN ×2 (08:23→12:15)
[2016-12-26] MEDS: Divalproex 500 mg DR(BID formulation) PO SCH ×2 (10:08→17:35)
[2016-12-26] MEDS: Bacitracin OINT 15GM TOP SCH ×2 (10:11→17:35)
[2016-12-26 11:07] LABS: HEMOGLOBIN F 4.9 Percent (<2.0)
[2016-12-26 16:03] VITALS: BP 114/71; TEMP 98.8
[2016-12-26 18:02] VITALS: PULSE 94; O2SAT 96
== END 2016-12-26 23:35 | disposition home or self-care (01) | DRG 395 ==
LOC: H.ER 12:22 → H.ERHOLD 18:22 → H.MEDSURG1 20:20 → OBSVTOIN 12-21 16:23 → H.MEDSURG1 12-23 03:20
PROVIDERS: ADMIT Internal Medicine; ATTEND Internal Medicine
DX: D57.00 Hb-SS disease with crisis, unspecified (principal); I69.354 Hemiplegia and hemiparesis following cerebral infarction affecting left non-dominant side; G40.909 Epilepsy, unspecified, not intractable, without status epilepticus; J45.909 Unspecified asthma, uncomplicated; Z88.6 Allergy status to analgesic agent; Z79.82 Long term (current) use of aspirin

== ENCOUNTER 2017-02-25 01:25 | Inpatient (IN) | payer MEDICAID ==
[2017-02-25] MEDS ORDERED: Sodium Chloride 0.9% 1,000 ML IV STA (02:13)
[2017-02-25] MEDS ORDERED: DiphenhydrAMINE 50 mg/ml Inj IVP STA ×3 (02:14→10:15)
--- NOTE | 2017-02-25 02:48 | ED PDOC ---
HPI: General Adult Time Seen by Provider: 02/25/17 01:48 Chief Complaint (Nursing): Abdominal Pain Chief Complaint (Provider): Diffuse Body Aches History Per: Patient History/Exam Limitations: no limitations Current Symptoms Are (Timing): Still Present Additional Complaint(s): 26 year old female presents to ED with complaints of diffuse body pain and has a past medical history of sickle cell anemia. (+) chronic right sided abdominal pain, chronic back pain, x1 seizure this morning. Patient notes that she did not present to ED immediately status post seizure because her mother believed that it was a pseudo-seizure. Patient confirms taking 6mg Dilaudid x14 hours ago and requests Dilaudid 3mg IV. PCP: Non [facility] Past Medical History Reviewed: Historical Data, Nursing Documentation, Vital Signs Vital Signs: Last Vital Signs Temp 99.5 F 02/25/17 01:34 Pulse 96 H 02/25/17 01:34 Resp 16 02/25/17 01:34 BP 133/91 H 02/25/17 01:34 Pulse Ox 100 02/25/17 05:37 - Medical History PMH: Asthma, Seizures, Sickle Cell Disease Denies: Chronic Kidney Disease - Surgical History Surgical History: Denies: No Surg Hx - Family History Family History: States: Unknown Family Hx - Living Arrangements Living Arrangements: With Family - Social History Alcohol: None Drugs: Denies - Immunization History Hx Tetanus Toxoid Vaccination: Yes Hx Influenza Vaccination: Yes Hx Pneumococcal Vaccination: Yes - Home Medications Home Medications: Ambulatory Orders Medication Instructions Recorded Aspirin 81 mg PO DAILY 12/20/16 DULoxetine [Cymbalta] 30 mg PO DAILY 12/20/16 DiphenhydrAMINE [Benadryl] 50 mg PO Q4H PRN 12/20/16 Divalproex [Depakote DR] 1,000 mg PO BID 12/20/16 Escitalopram [Lexapro] 20 mg PO HS 12/20/16 Famotidine [Pepcid] 20 mg PO DAILY PRN 12/20/16 Folic Acid 1 mg PO DAILY 12/20/16 HYDROmorphone [Dilaudid] 4 mg PO Q4H PRN 12/20/16 Lacosamide [Vimpat] 600 mg PO BID 12/20/16 Medroxyprogesterone Acetate 150 mg IM Q90D 12/20/16 [Depo-Provera] Oxcarbazepine [Trileptal] 300 mg PO BID 12/20/16 Trazodone HCl 150 mg PO HS 12/20/16 - Allergies Allergies/Adverse Reactions: Allergies Allergy/AdvReac Type Severity Reaction Status Date / Time ANOOP Inhibitors Allergy SWELLING Verified 12/20/16 23:38 ketorolac [From Toradol] Allergy URTICARIA Verified 12/20/16 23:38 levetiracetam [From Keppra] Allergy HEADACHE Verified 12/20/16 23:38 morphine Allergy URTICARIA Verified 12/20/16 23:38 hydroxyurea AdvReac HEADACHE Verified 12/20/16 23:38 Review of Systems ROS Statement: Except As Marked, All Systems Reviewed And Found Negative Constitutional: Positive for: Other (diffuse body aches) Gastrointestinal: Positive for: Abdominal Pain (right sided) Musculoskeletal: Positive for: Back Pain Neurological: Positive for: Seizures (x1) Physical Exam - Reviewed Nursing Documentation Reviewed: Yes Vital Signs Reviewed: Yes - Physical Exam Appears: Positive for: Non-toxic, No Acute Distress (sitting comfortably in ER bed, watching in iPad) Head Exam: Positive for: ATRAUMATIC, NORMOCEPHALIC Skin: Positive for: Normal Color, Warm, Dry Eye Exam: Positive for: EOMI, PERRL, Scleral icterus ENT: Positive for: Normal ENT Inspection Neck: Positive for: Normal, Painless ROM, Supple Cardiovascular/Chest: Positive for: Regular Rate, Rhythm Respiratory: Positive for: Normal Breath Sounds. Negative for: Respiratory Distress Gastrointestinal/Abdominal: Positive for: Normal Exam, Soft. Negative for: Tenderness Back: Positive for: Normal Inspection Extremity: Positive for: Normal ROM. Negative for: Deformity Neurologic/Psych: Positive for: Alert, Oriented. Negative for: Motor/Sensory Deficits - Laboratory Results Result Diagrams: 02/25/17 02:53 02/25/17 02:53 - ECG O2 Sat by Pulse Oximetry: 100 (RA) Pulse Ox Interpretation: Normal Medical Decision Making Medical Decision Makin Initial impression: sickle cell pain Initial plan: * T&S * EKG * Labs * UDrug screen * Trop I * PTT/PT * Reticulocyte count * CXR * Benadryl 25mg IVP * Dilaudid 2mg IVP * NS IV * UA * Re-eval 0230 * ED OBS ADMISSION All further documentation will take place in ED OBS note Scribe Attestation: Documented by Malorie Alonso acting as a scribe for Haris Bravo MD. Scribe Attestation: All medical record entries made by the Scribe were at my direction and personally dictated by me. I have reviewed the chart and agree that the record accurately reflects my personal performance of the history, physical exam, medical decision making, and the department course for this patient. I have also personally directed, reviewed, and agree with the discharge instructions and disposition. ED OBSERVATION Date of observation admission: 02/25/17 Time of observation admission: 02:30 - Observation admission statement Patient is being placed in observation because:: Pending pain control - Goals of Observation Goals of observation are:: Resolution of pain - Progress Note Progress Note: 02/25/17 04:00 Patient states pain is still present. * Benadryl 25mg IVP * Dilaudid 2mg IVP 02/25/17 04:57 * PTT * INR 02/25/17 06:30 Patient is admitted to Dr. Mcneil for pain control for sickle cell crisis. Disposition - Clinical Impression Clinical Impression: Sickle cell crisis - Patient ED Disposition Is Patient to be Admitted: No - Disposition Disposition Time: 06:30 Condition: STABLE
[2017-02-25] MEDS ORDERED: DiphenhydrAMINE 50 mg/ml Inj ONE ×3 (02:57→10:21)
[2017-02-25 03:58] LABS: BASO # 0.1 K/uL (0.0-0.2); EOS # 0.1 K/uL (0.0-0.7); EOS % 1.8 % (0.0-4.0); HEMOGLOBIN 9.1 g/dL (12.0-16.0); LYMPH # 2.1 K/uL (1.0-4.3); LYMPH % 37.4 % (20.0-40.0); MEAN CELL VOLUME 95.8 fl (81.0-99.0); MEAN CORPUSCULAR HEMOGLOBIN 33.3 pg (27.0-31.0); MEAN CORPUSCULAR HGB CONC 34.8 g/dL (33.0-37.0); MEAN PLATELET VOLUME 7.6 fl (7.2-11.7); MONO # 0.6 K/uL (0.0-0.8); NEUT # 2.8 K/uL (1.8-7.0); NEUT % 49.8 % (50.0-75.0); NRBC % 14.2 % (0.0-0.0); RBC 2.73 Mil/uL (3.80-5.20); RED CELL DISTRIBUTION WIDTH 26.5 % (11.5-14.5); WHITE BLOOD COUNT 5.6 K/uL (4.8-10.8)
[2017-02-25 04:02] LABS: BARBITURATES, UR NEGATIVE (NEGATIVE); BENZODIAZEPINES, UR NEGATIVE (NEGATIVE)
[2017-02-25 04:02] LABS: GFR AFRICAN-AMERICAN > 60; GFR NON-AFRICAN AMERICAN > 60
[2017-02-25 04:03] LABS: BLOOD UREA NITROGEN 12 mg/dl (7-17); CALCIUM 8.9 mg/dL (8.4-10.2)
[2017-02-25 04:05] LABS: OPIATES, UR POSITIVE (NEGATIVE)
[2017-02-25 04:06] LABS: PHENCYCLIDINE, UR NEGATIVE (NEGATIVE)
[2017-02-25 04:14] LABS: SQUAMOUS EPITHIAL 1 /hpf (0-5); URINE BACTERIA RARE (<OCC); URINE BILIRUBIN NEGATIVE (NEGATIVE); URINE BLOOD SMALL (NEGATIVE); URINE CLARITY SLIGHTY-CLOUDY (Clear); URINE COLOR AMBER (YELLOW); URINE GLUCOSE (UA) NEG (Normal); URINE LEUKOCYTE ESTERASE NEG Leu/uL (Negative); URINE NITRATE NEGATIVE (NEGATIVE); URINE PROTEIN >=500 mg/dL (NEGATIVE)
[2017-02-25 04:15] LABS: INR 1.5 (0.9-1.2); PROTHROMBIN TIME 16.6 Seconds (9.8-13.1)
[2017-02-25 05:52] LABS: INR 1.1 (0.9-1.2); PARTIAL THROMBOPLASTIN TIME 27.5 Seconds (25.6-37.1)
[2017-02-25] MEDS ORDERED: DiphenhydrAMINE 50 mg/ml Inj IV STA (09:10)
[2017-02-25] MEDS ORDERED: Sodium Chloride 0.45% 1,000 ML IV SCH (09:15)
--- NOTE | 2017-02-25 10:05 | CARD ---
APPROVED REPORT EKG Measurement Heart [id number] <Conclusion> Normal sinus rhythm Nonspecific T wave abnormality Abnormal ECG
[2017-02-25] MEDS ORDERED: HYDROmorphone 0.5 mg/0.5 ml ISec IVP STA (10:13)
[2017-02-25] MEDS: Divalproex 500 mg DR(BID formulation) PO SCH ×2 (10:41→19:32)
--- NOTE | 2017-02-25 16:51 | RAD ---
PROCEDURE: CHEST RADIOGRAPH, 1 VIEW HISTORY: sickle cell crisis COMPARISON: 12/20/2016 FINDINGS: LUNGS: Clear. PLEURA: No pneumothorax or pleural fluid seen. CARDIOVASCULAR: Normal heart size. Left central venous infusion port. OSSEOUS STRUCTURES: No significant abnormalities. VISUALIZED UPPER ABDOMEN: Normal. OTHER FINDINGS: None. IMPRESSION: No active disease.
[2017-02-25] MEDS: Sodium Chloride 0.45% 1,000 ML IV SCH (17:01)
--- NOTE | 2017-02-25 18:46 | HP ---
HISTORY OF PRESENT ILLNESS: The patient is a 26-year-old female who was admitted at emergency room because of sickle cell crisis. She complained of back pain and had a seizure episode today prior to being admitted in the emergency room. PAST MEDICAL HISTORY: Sickle cell disease and is on Dilaudid up to 6 mg p.r.n. and also has history of seizures for which she takes antiseizure medications. 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 FAMILY HISTORY: Noncontributory except for sickle cell trait in family members. 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 PHYSICAL EXAMINATION GENERAL: The patient is alert and oriented, appears to be moderately stressed because of bone pains. VITAL SIGNS: Blood pressure 122/70 with a pulse of 78, respirations 18. She is afebrile. O2 saturation 98%. SKIN: Fair turgor. HEENT: Pupils equal, reactive to light and accommodation. Mouth shows fair hygiene. JVP is flat. LUNGS: Clear. She has a in place over left anterior chest wall. BREAST: Normal. ABDOMEN: Soft and nontender. No organomegaly. HEART: Regular. EXTREMITIES: Shows no edema or cyanosis. CENTRAL NERVOUS SYSTEM: Grossly intact. GENITAL AND RECTAL: Deferred. LABORATORY DATA: Remarkable for WBC of 5.6, hemoglobin 9.1, platelet count of 117,000. Sodium 136, potassium 3.6, BUN 12, creatinine 0.7, platelet count 9.7. Chest x-ray official report pending. IMPRESSION: Acute sickle cell crisis, probably vaso-occlusive; history of seizure or pseudo seizure; history of asthma. PLAN: Intravenous hydration . We will obtain Hematology evaluation for appropriate therapy. Andrea Mcneil MD
--- NOTE | 2017-02-25 19:46 | CP.PCM.CON ---
History of Present Illness - History of Present Illness History of Present Illness: 26 year old female with a history of CVA, seizure disorder, sickle cell anemia, admitted s/p seizure and sickle cell pain crisis. The patient reports to the weather exacerbating her sickle cell pain. She normally follows with a authorization manager in [place] but has recently moved to the area. She currently reports pain in her back and legs. Her pain is consistent with prior sickle cell crisis. She denies shortness of breath and chest pain. Past medical history: CVA, seizure, disorder, sickle cell anemia Past surgical history: Cholecystectomy Family history: Parents have sickle trait Social history: Denies tobacco, alcohol, and illicit drug use. Allergies: Multiple, see allergy list Review of systems: All remaining review of systems including HEENT, cardiovascular, respiratory, gastrointestinal, genitourinary, musculoskeletal, dermatologic, neurologic, and psychiatric are negative unless mentioned in the HPI. Past Patient History - Past Social History Smoking Status: Never Smoked - CARDIAC Hx Cardiac Disorders: No - PULMONARY Hx Asthma: Yes - NEUROLOGICAL Hx Seizures: Yes - HEENT Hx HEENT Problems: No - RENAL Hx Chronic Kidney Disease: No - ENDOCRINE/METABOLIC Hx Endocrine Disorders: No - HEMATOLOGICAL/ONCOLOGICAL Hx Blood Disorders: Yes - INTEGUMENTARY Hx Dermatological Problems: No - MUSCULOSKELETAL/RHEUMATOLOGICAL Hx Musculoskeletal Disorders: Yes Hx Falls: Yes - GASTROINTESTINAL Hx Gastrointestinal Disorders: No - GENITOURINARY/GYNECOLOGICAL Hx Genitourinary Disorders: No - PSYCHIATRIC Hx Psychophysiologic Disorder: No Hx Substance Use: No - SURGICAL HISTORY Hx Surgeries: Yes Other/Comment: left chest wall port - ANESTHESIA Hx Anesthesia: Yes Hx Anesthesia Reactions: No Meds Allergies/Adverse Reactions: Allergies Allergy/AdvReac Type Severity Reaction Status Date / Time ANOOP Inhibitors Allergy SWELLING Verified 12/20/16 23:38 ketorolac [From Toradol] Allergy URTICARIA Verified 12/20/16 23:38 levetiracetam [From Keppra] Allergy HEADACHE Verified 12/20/16 23:38 morphine Allergy URTICARIA Verified 12/20/16 23:38 hydroxyurea AdvReac HEADACHE Verified 12/20/16 23:38 - Medications Medications: Current Medications Aspirin (Aspirin Chewable) 81 mg PO DAILY [facility] Last Admin: 02/25/17 10:42 Dose: 81 mg Diphenhydramine HCl (Benadryl) 50 mg PO Q4H PRN PRN Reason: Itching / Pruritus Last Admin: 02/25/17 17:42 Dose: 50 mg Divalproex Sodium (Depakote Dr(*Bid*)) 1,000 mg PO BID [facility] Last Admin: 02/25/17 19:32 Dose: 1,000 mg Duloxetine HCl (Cymbalta) 30 mg PO DAILY [facility] Last Admin: 02/25/17 10:39 Dose: 30 mg Escitalopram Oxalate (Lexapro) 20 mg PO HS [facility] Famotidine (Pepcid) 20 mg PO DAILY PRN PRN Reason: Heartburn Folic Acid (Folic Acid) 1 mg PO DAILY [facility] Last Admin: 02/25/17 10:42 Dose: 1 mg Hydromorphone HCl (Dilaudid) 2 mg IVP Q4 PRN PRN Reason: Pain, moderate (4-7) Last Admin: 02/25/17 17:40 Dose: 2 mg Sodium Chloride (Sodium Chloride 0.45%) 1,000 mls @ 100 mls/hr IV .Q10H [facility] Stop: 02/26/17 09:07 Last Admin: 02/25/17 17:01 Dose: 100 mls/hr Oxcarbazepine (Trileptal) 300 mg PO BID [facility] Last Admin: 02/25/17 19:32 Dose: 300 mg Trazodone HCl (Desyrel) 150 mg PO [facility] Physical Exam - Head Exam Head Exam: ATRAUMATIC - ENT Exam ENT Exam: Mucous Membranes Dry - Neck Exam Neck exam: Positive for: Normal Inspection Results - Vital Signs Recent Vital Signs: Last Vital Signs Temp 97.8 F 02/25/17 15:04 Pulse 78 02/25/17 15:04 Resp 18 02/25/17 18:49 BP 120/78 02/25/17 15:04 Pulse Ox 98 02/25/17 11:45 - Labs Result Diagrams: 02/25/17 02:53 02/25/17 02:53 Assessment & Plan (1) Sickle cell pain crisis Assessment and Plan: IV fluids, folic acid, 02 via NC, pain meds no current transfusion indication pt reports to hydroxyurea causing hairloss and does not take this Status: Acute (2) Thrombocytopenia Assessment and Plan: mild cont. to monitor Thank you for this interesting consult. Status: Acute
--- NOTE | 2017-02-25 20:47 | CP.PCM.PN ---
Subjective - Date & Time of Evaluation Date of Evaluation: 02/25/17 Time of Evaluation: 20:42 - Subjective Subjective: Called by RN to evaluate patient after unwitnessed fall. According to patient, urge to urinate though was unable to make it to the bathroom when she urinating onto floor. When attempting to return to bed, slipped on urine and fell onto mattress with left elbow striking bedside table/tray and left side of head striking plastic bed rail. Patient states she feels okay though with a little headache on left side. No nausea, vomiting, seizure-like activity, change in vision, chest pain, sob, palpitations, or LOC. No obvious trauma/bruising/ ecchymoses noted in above areas. No tenderness to palpation.Full range of motion and neurovascular intact. Patient to continue management for sickle cell crisis as per PMD and Heme/Onc recommendations. Patient instructed to call nurse for assistance to use restroom, encouraged bedside commode if needed. Will give patient acetaminophen for headache at this time. Patient instructed to inform nurse of any new/worsening symptoms. Objective - Vital Signs/Intake and Output Vital Signs (last 24 hours): Temp Pulse Resp BP Pulse Ox 97.8 F 78 18 120/78 98 02/25/17 15:04 02/25/17 15:04 02/25/17 18:49 02/25/17 15:04 02/25/17 11:45 - Medications Medications: Current Medications Aspirin (Aspirin Chewable) 81 mg PO DAILY [facility] Last Admin: 02/25/17 10:42 Dose: 81 mg Diphenhydramine HCl (Benadryl) 50 mg PO Q4H PRN PRN Reason: Itching / Pruritus Last Admin: 02/25/17 17:42 Dose: 50 mg Divalproex Sodium (Depakote Dr(*Bid*)) 1,000 mg PO BID [facility] Last Admin: 02/25/17 19:32 Dose: 1,000 mg Duloxetine HCl (Cymbalta) 30 mg PO DAILY [facility] Last Admin: 02/25/17 10:39 Dose: 30 mg Escitalopram Oxalate (Lexapro) 20 mg PO HS [facility] Famotidine (Pepcid) 20 mg PO DAILY PRN PRN Reason: Heartburn Folic Acid (Folic Acid) 1 mg PO DAILY [facility] Last Admin: 02/25/17 10:42 Dose: 1 mg Hydromorphone HCl (Dilaudid) 2 mg IVP Q4 PRN PRN Reason: Pain, moderate (4-7) Last Admin: 02/25/17 17:40 Dose: 2 mg Sodium Chloride (Sodium Chloride 0.45%) 1,000 mls @ 100 mls/hr IV .Q10H [facility] Stop: 02/26/17 09:07 Last Admin: 02/25/17 17:01 Dose: 100 mls/hr Oxcarbazepine (Trileptal) 300 mg PO BID [facility] Last Admin: 02/25/17 19:32 Dose: 300 mg Trazodone HCl (Desyrel) 150 mg PO HS [facility] - Labs Labs: PT 12.0 Seconds (9.8-13.1) 02/25/17 05:04 INR 1.1 (0.9-1.2) 02/25/17 05:04 APTT 27.5 Seconds (25.6-37.1) 02/25/17 05:04 - Constitutional Appears: Well, Non-toxic, No Acute Distress - Head Exam Head Exam: ATRAUMATIC, NORMAL INSPECTION, NORMOCEPHALIC - Eye Exam Eye Exam: EOMI, Normal appearance - ENT Exam ENT Exam: Mucous Membranes Moist, Normal Exam Additional comments: no tongue lacerations noted - Neck Exam Neck Exam: Full ROM, Normal Inspection. absent: Tenderness - Respiratory Exam Respiratory Exam: Clear to Ausculation Bilateral, NORMAL BREATHING PATTERN - Cardiovascular Exam Cardiovascular Exam: REGULAR RHYTHM, +S1, +S2. absent: Murmur - GI/Abdominal Exam GI & Abdominal Exam: Soft, Normal Bowel Sounds. absent: Tenderness - Extremities Exam Extremities Exam: Normal Inspection. absent: Tenderness - Back Exam Back Exam: NORMAL INSPECTION - Neurological Exam Neurological Exam: Alert, Awake, Oriented x3. absent: Motor Sensory Deficit - Psychiatric Exam Psychiatric exam: Normal Affect, Normal Mood - Skin Skin Exam: Dry, Intact, Normal Color, Warm
[2017-02-26] MEDS: Sodium Chloride 0.45% 1,000 ML IV SCH ×2 (08:05→08:07)
[2017-02-26] MEDS: Divalproex 500 mg DR(BID formulation) PO SCH ×2 (08:07→18:02)
[2017-02-26 08:52] LABS: BASO # 0.1 K/uL (0.0-0.2); BASO % 0.9 % (0.0-2.0); EOS # 0.2 K/uL (0.0-0.7); EOS % 3.9 % (0.0-4.0); HEMOGLOBIN 8.1 g/dL (12.0-16.0); LYMPH % 34.7 % (20.0-40.0); MEAN CELL VOLUME 97.6 fl (81.0-99.0); MEAN CORPUSCULAR HGB CONC 33.8 g/dL (33.0-37.0); MEAN PLATELET VOLUME 7.5 fl (7.2-11.7); MONO # 0.8 K/uL (0.0-0.8); MONO % 14.5 % (0.0-10.0); NEUT # 2.6 K/uL (1.8-7.0); NRBC % 10.4 % (0.0-0.0); RBC 2.46 Mil/uL (3.80-5.20); RED CELL DISTRIBUTION WIDTH 26.2 % (11.5-14.5); WHITE BLOOD COUNT 5.6 K/uL (4.8-10.8)
[2017-02-26 09:03] LABS: BLOOD UREA NITROGEN 8 mg/dl (7-17); CALCIUM 8.8 mg/dL (8.4-10.2); GFR AFRICAN-AMERICAN > 60; GFR NON-AFRICAN AMERICAN > 60
--- NOTE | 2017-02-26 09:53 | CP.PCM.PN ---
Subjective - Date & Time of Evaluation Date of Evaluation: 02/26/17 Time of Evaluation: 09:56 - Subjective Subjective: APPEARS TO BE DRUG SEEKING WANTS IV BENADRYL EVERY 4HRS REQUESTING DILAUDID EVERY 2HRS CLAIMS THAT SHE FELL LAST NIGHT BUT HAS NO EVIDENCE OF INJURIES Objective - Vital Signs/Intake and Output Vital Signs (last 24 hours): Temp Pulse Resp BP Pulse Ox 98.3 F 85 18 109/68 93 L 02/26/17 08:37 02/26/17 08:37 02/26/17 08:37 02/26/17 08:37 02/26/17 08:37 - Medications Medications: Current Medications Aspirin (Aspirin Chewable) 81 mg PO DAILY [facility] Last Admin: 02/26/17 08:11 Dose: 81 mg Diphenhydramine HCl (Benadryl) 25 mg IVP Q12 [facility] Divalproex Sodium (Depakote Dr(*Bid*)) 1,000 mg PO BID [facility] Last Admin: 02/26/17 08:07 Dose: 1,000 mg Duloxetine HCl (Cymbalta) 30 mg PO DAILY [facility] Last Admin: 02/25/17 10:39 Dose: 30 mg Escitalopram Oxalate (Lexapro) 20 mg PO HS [facility] Last Admin: 02/25/17 21:40 Dose: 20 mg Famotidine (Pepcid) 20 mg PO DAILY PRN PRN Reason: Heartburn Folic Acid (Folic Acid) 1 mg PO DAILY [facility] Last Admin: 02/26/17 08:11 Dose: 1 mg Hydromorphone HCl (Dilaudid) 2 mg IVP Q4 PRN PRN Reason: Pain, moderate (4-7) Last Admin: 02/26/17 06:00 Dose: 2 mg Oxcarbazepine (Trileptal) 300 mg PO BID [facility] Last Admin: 02/26/17 08:07 Dose: 300 mg Trazodone HCl (Desyrel) 150 mg PO HS [facility] Last Admin: 02/25/17 21:40 Dose: 150 mg - Labs Labs: 02/26/17 08:15 02/26/17 08:15 PT 12.0 Seconds (9.8-13.1) 02/25/17 05:04 INR 1.1 (0.9-1.2) 02/25/17 05:04 APTT 27.5 Seconds (25.6-37.1) 02/25/17 05:04 - Constitutional Appears: No Acute Distress - Head Exam Head Exam: ATRAUMATIC, NORMAL INSPECTION, NORMOCEPHALIC - Eye Exam Eye Exam: EOMI, Normal appearance, PERRL Pupil Exam: NORMAL ACCOMODATION, PERRL - ENT Exam ENT Exam: Mucous Membranes Moist, Normal Exam - Neck Exam Neck Exam: Full ROM, Normal Inspection. absent: Lymphadenopathy - Respiratory Exam Respiratory Exam: Clear to Ausculation Bilateral, NORMAL BREATHING PATTERN - Cardiovascular Exam Cardiovascular Exam: REGULAR RHYTHM, +S1, +S2. absent: Murmur - GI/Abdominal Exam GI & Abdominal Exam: Soft, Tenderness, Normal Bowel Sounds - Rectal Exam Rectal Exam: NORMAL INSPECTION - Extremities Exam Extremities Exam: Full ROM, Normal Capillary Refill, Normal Inspection, Tenderness. absent: Joint Swelling, Pedal Edema - Back Exam Back Exam: NORMAL INSPECTION, tenderness - Neurological Exam Neurological Exam: Alert, Awake, CN II-XII Intact, Normal Gait, Oriented x3 - Psychiatric Exam Psychiatric exam: Normal Affect, Normal Mood - Skin Skin Exam: Dry, Intact, Normal Color, Warm Assessment and Plan - Assessment and Plan (Free Text) Assessment: SICKLE CELL CRISIS ANEMIA HX OF SEIZURES ?DILAUDID/BENADRYL DEPENDENCE Plan: ADVISED COMPLIANCE TO RX CONTINUE IV HYDRATION AND ANALGESICS WILL BEGIN TO TAPER DILAUDID IN AM D/C HOME ON FRIDAY IF STABLE
[2017-02-26] MEDS: DiphenhydrAMINE 50 mg/ml Inj IVP SCH ×2 (10:17→21:56)
--- NOTE | 2017-02-27 09:19 | CP.PCM.PN ---
Subjective - Date & Time of Evaluation Date of Evaluation: 02/27/17 Time of Evaluation: 09:19 - Subjective Subjective: CLAIMS THAT SHE DID NOT SLEEP LAST NIGHT BECAUSE OF BACK PAINS APPREHENSIVE TODAY Objective - Vital Signs/Intake and Output Vital Signs (last 24 hours): Temp Pulse Resp BP Pulse Ox 98.6 F 82 20 109/67 95 02/27/17 07:33 02/27/17 07:33 02/27/17 07:33 02/27/17 07:33 02/27/17 07:33 - Medications Medications: Current Medications Aspirin (Aspirin Chewable) 81 mg PO DAILY [facility] Last Admin: 02/26/17 08:11 Dose: 81 mg Diphenhydramine HCl (Benadryl) 25 mg IVP Q12 [facility] Last Admin: 02/26/17 21:56 Dose: 25 mg Divalproex Sodium (Depakote Dr(*Bid*)) 1,000 mg PO BID [facility] Last Admin: 02/26/17 18:02 Dose: 1,000 mg Duloxetine HCl (Cymbalta) 30 mg PO DAILY [facility] Last Admin: 02/26/17 12:10 Dose: Not Given Escitalopram Oxalate (Lexapro) 20 mg PO HS [facility] Last Admin: 02/26/17 22:02 Dose: 20 mg Famotidine (Pepcid) 20 mg PO DAILY PRN PRN Reason: Heartburn Folic Acid (Folic Acid) 1 mg PO DAILY [facility] Last Admin: 02/26/17 08:11 Dose: 1 mg Hydromorphone HCl (Dilaudid) 2 mg IVP Q4 PRN PRN Reason: Pain, moderate (4-7) Last Admin: 02/27/17 06:06 Dose: 2 mg Oxcarbazepine (Trileptal) 300 mg PO BID [facility] Last Admin: 02/26/17 18:03 Dose: 300 mg Trazodone HCl (Desyrel) 150 mg PO HS [facility] Last Admin: 02/26/17 22:02 Dose: 150 mg - Labs Labs: 02/26/17 08:15 02/26/17 08:15 PT 12.0 Seconds (9.8-13.1) 02/25/17 05:04 INR 1.1 (0.9-1.2) 02/25/17 05:04 APTT 27.5 Seconds (25.6-37.1) 02/25/17 05:04 - Constitutional Appears: Chronically Ill - Head Exam Head Exam: ATRAUMATIC, NORMAL INSPECTION, NORMOCEPHALIC - Eye Exam Eye Exam: EOMI, Normal appearance, PERRL Pupil Exam: NORMAL ACCOMODATION, PERRL - ENT Exam ENT Exam: Mucous Membranes Moist, Normal Exam - Neck Exam Neck Exam: Full ROM, Normal Inspection. absent: Lymphadenopathy - Respiratory Exam Respiratory Exam: Clear to Ausculation Bilateral, NORMAL BREATHING PATTERN - Cardiovascular Exam Cardiovascular Exam: REGULAR RHYTHM, +S1, +S2. absent: Murmur - GI/Abdominal Exam GI & Abdominal Exam: Soft, Normal Bowel Sounds. absent: Tenderness - Rectal Exam Rectal Exam: NORMAL INSPECTION - Extremities Exam Extremities Exam: Full ROM, Normal Capillary Refill, Normal Inspection. absent : Joint Swelling, Pedal Edema - Back Exam Back Exam: NORMAL INSPECTION - Neurological Exam Neurological Exam: Alert, Awake, CN II-XII Intact, Normal Gait, Oriented x3 - Psychiatric Exam Psychiatric exam: Normal Affect, Normal Mood - Skin Skin Exam: Dry, Intact, Normal Color, Warm Assessment and Plan - Assessment and Plan (Free Text) Assessment: SICKLE CELL CRISIS HX OF SEIZURES Plan: DECREASE DILAUDID TO Q6H,PRN D/C IN AM IF STABLE
[2017-02-27] MEDS: DiphenhydrAMINE 50 mg/ml Inj IVP SCH ×2 (10:05→21:47)
[2017-02-27] MEDS: HYDROmorphone 0.5 mg/0.5 ml ISec IVP SCH ×3 (10:06→21:48)
[2017-02-27] MEDS: Divalproex 500 mg DR(BID formulation) PO SCH ×2 (10:11→15:59)
[2017-02-27] MEDS: Sodium Chloride 0.9% 1,000 ML IV SCH ×2 (10:12→23:44)
--- NOTE | 2017-02-27 14:25 | CP.PCM.PN ---
Subjective - Date & Time of Evaluation Date of Evaluation: 02/26/17 Time of Evaluation: 19:00 - Subjective Subjective: Has some bone pain, appears more comfortable fell overnight Objective - Vital Signs/Intake and Output Vital Signs (last 24 hours): Temp Pulse Resp BP Pulse Ox 98.6 F 82 20 109/67 95 02/27/17 07:33 02/27/17 07:33 02/27/17 07:33 02/27/17 07:33 02/27/17 07:33 - Medications Medications: Current Medications Aspirin (Aspirin Chewable) 81 mg PO DAILY [facility] Last Admin: 02/27/17 10:12 Dose: 81 mg Diphenhydramine HCl (Benadryl) 25 mg IVP Q12 [facility] Last Admin: 02/27/17 10:05 Dose: 25 mg Divalproex Sodium (Depakote Dr(*Bid*)) 1,000 mg PO BID [facility] Last Admin: 02/27/17 10:11 Dose: 1,000 mg Duloxetine HCl (Cymbalta) 30 mg PO DAILY [facility] Last Admin: 02/27/17 10:13 Dose: 30 mg Escitalopram Oxalate (Lexapro) 20 mg PO HS [facility] Last Admin: 02/26/17 22:02 Dose: 20 mg Famotidine (Pepcid) 20 mg PO DAILY PRN PRN Reason: Heartburn Folic Acid (Folic Acid) 1 mg PO DAILY [facility] Last Admin: 02/27/17 10:12 Dose: 1 mg Hydromorphone HCl (Dilaudid) 2 mg IVP Q6 [facility] Last Admin: 02/27/17 10:06 Dose: 2 mg Sodium Chloride (Sodium Chloride 0.9%) 1,000 mls @ 80 mls/hr IV .[id number] [facility] Stop: 02/28/17 09:21 Last Admin: 02/27/17 10:12 Dose: 80 mls/hr Oxcarbazepine (Trileptal) 300 mg PO BID [facility] Last Admin: 02/27/17 10:12 Dose: 300 mg Trazodone HCl (Desyrel) 150 mg PO HS [facility] Last Admin: 02/26/17 22:02 Dose: 150 mg - Labs Labs: 02/26/17 08:15 02/26/17 08:15 PT 12.0 Seconds (9.8-13.1) 02/25/17 05:04 INR 1.1 (0.9-1.2) 02/25/17 05:04 APTT 27.5 Seconds (25.6-37.1) 02/25/17 05:04 - Head Exam Head Exam: ATRAUMATIC - ENT Exam ENT Exam: Mucous Membranes Dry - Respiratory Exam Respiratory Exam: NORMAL BREATHING PATTERN - Cardiovascular Exam Cardiovascular Exam: +S1, +S2 - GI/Abdominal Exam GI & Abdominal Exam: Normal Bowel Sounds - Back Exam Back Exam: CVA tenderness (L) Assessment and Plan (1) Sickle cell pain crisis Assessment & Plan: IV fluids, pain meds, folic acid, 02 via NC, IV hydration Status: Acute (2) Thrombocytopenia Assessment & Plan: mild, cont. to monitor Status: Acute
--- NOTE | 2017-02-27 18:59 | PCM.RRTMUL ---
<Jose Guadalupe Verdin - Last Filed: 02/27/17 19:34> [employer] Nurse Assessment - Vital Signs Blood Pressure:: 103/63 Pulse Rate:: 90 Respiratory Rate:: 17 Temperature:: 98.7 F I.Reason for [employer] - A) Acute Change in Patient: (Select all that apply): Acute change in mental status (seizure) - A) Initial Vital Signs: Blood Pressure: 152/91 Pulse Rate: 120 Respiratory Rate: 18 Temperature: 97.9 F O2 Sat by Pulse Oximetry: 98 - B) Neurological Status Other (Please specify): seizure - C) Respiratory Oxygen Delivery Method: Nasal Cannula @L/min Oxygen Flow Rate: 2 - Constitutional Appears: In Acute Distress - Head Head Exam: ATRAUMATIC, NORMAL INSPECTION, NORMOCEPHALIC - Eyes Additional Comments: rolling back of eyes, eyelids twitching bilaterally - Respiratory Exam Respiratory Exam: Clear to Ausculation Bilateral, NORMAL BREATHING PATTERN. absent: Decreased Breath Sounds, Rhonchi, Wheezes - Cardiovascular Exam Cardiovascular Exam: REGULAR RHYTHM, RRR, +S1, +S2 - GI/Abdominal Exam GI & Abdominal Exam: Soft, Normal Bowel Sounds. absent: Tenderness - Neurological Exam Neurological Exam: Altered - Extremities Exam Extremities Exam: Normal Inspection (no seizure activity noted in all extremities, just facial) Plan - B. Assessment of Findings&Treatment Plan [employer] called for seizure 26 yo F with medical history of sickle cell anemia, seizure disorder (h/o intubation x 3, last time being 'years ago') with seizure-like activity x 3 minutes according to [employer] monitoring system stress test technician. Patient with eyelid twitching, unresponsive to name, and rolling back of eyes. No seizure activity noted in rest of examination. Patient received 2mg Ativan x 2 IVP. Seizure activity resolved after 9-10 minutes. Patient without post-ictal symptoms. Patient awake, alert, oriented x 3. Able to provide a full history and obtain information from phone with unlocking of phone. Patient in no acute distress after seizure activity. Physical exam benign after seizure activity. 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 Will transfer patient to telemetry unit for further monitoring. <Tawnya Oneal - Last Filed: 02/28/17 15:47> Attending/Attestation - Attestation I have personally seen and examined this patient.: Yes I have fully participated in the care of the patient.: Yes I have reviewed all pertinent clinical information, including history, physical exam and plan: Yes Notes (Text): 02/28/17 15:47 SEEN AND EXAMINED PT WITH DR. VERDIN. AGREE WITH FINDINGS AND PLAN ABOVE.
[2017-02-27] MEDS ORDERED: Propofol 10 mg/ml Inj (100 ml) IV SCH (19:00)
--- NOTE | 2017-02-28 03:06 | CP.PCM.PN ---
Subjective - Date & Time of Evaluation Date of Evaluation: 02/27/17 Time of Evaluation: 21:00 - Subjective Subjective: Tearful and states no one cares about her, asking for more pain medication transferred to telemetry for seizure Objective - Vital Signs/Intake and Output Vital Signs (last 24 hours): Temp Pulse Resp BP Pulse Ox 97.1 F L 102 H 20 117/68 98 02/27/17 23:50 02/27/17 23:50 02/27/17 23:50 02/27/17 23:50 02/27/17 23:50 - Medications Medications: Current Medications Aspirin (Aspirin Chewable) 81 mg PO DAILY [facility] Last Admin: 02/27/17 10:12 Dose: 81 mg Diphenhydramine HCl (Benadryl) 25 mg IVP Q12 [facility] Last Admin: 02/27/17 21:47 Dose: 25 mg Divalproex Sodium (Depakote Dr(*Bid*)) 1,000 mg PO BID [facility] Last Admin: 02/27/17 15:59 Dose: 1,000 mg Duloxetine HCl (Cymbalta) 30 mg PO DAILY [facility] Last Admin: 02/27/17 10:13 Dose: 30 mg Escitalopram Oxalate (Lexapro) 20 mg PO HS [facility] Last Admin: 02/27/17 22:47 Dose: 20 mg Famotidine (Pepcid) 20 mg PO DAILY PRN PRN Reason: Heartburn Folic Acid (Folic Acid) 1 mg PO DAILY [facility] Last Admin: 02/27/17 10:12 Dose: 1 mg Hydromorphone HCl (Dilaudid) 2 mg IVP Q6 [facility] Last Admin: 02/27/17 21:48 Dose: 2 mg Sodium Chloride (Sodium Chloride 0.9%) 1,000 mls @ 80 mls/hr IV .[id number] [facility] Stop: 02/28/17 09:21 Last Admin: 02/27/17 23:44 Dose: 80 mls/hr Oxcarbazepine (Trileptal) 300 mg PO BID [facility] Last Admin: 02/27/17 15:59 Dose: 300 mg Trazodone HCl (Desyrel) 150 mg PO HS [facility] Last Admin: 02/27/17 22:47 Dose: 150 mg - Labs Labs: 02/26/17 08:15 02/26/17 08:15 PT 12.0 Seconds (9.8-13.1) 02/25/17 05:04 INR 1.1 (0.9-1.2) 02/25/17 05:04 APTT 27.5 Seconds (25.6-37.1) 02/25/17 05:04 - Constitutional Appears: Agitated - ENT Exam ENT Exam: Mucous Membranes Dry - Respiratory Exam Respiratory Exam: NORMAL BREATHING PATTERN - Cardiovascular Exam Cardiovascular Exam: +S1, +S2 - GI/Abdominal Exam GI & Abdominal Exam: Normal Bowel Sounds - Extremities Exam Extremities Exam: Normal Inspection Assessment and Plan (1) Sickle cell pain crisis Assessment & Plan: IV fluids, pain meds, 02 via NC, folic acid H/H at baseline repeat retic in AM Status: Acute (2) Thrombocytopenia Assessment & Plan: mild, repeat cbc in AM Status: Acute
[2017-02-28 07:09] LABS: HEMOGLOBIN 8.4 g/dL (12.0-16.0); MEAN CELL VOLUME 96.7 fl (81.0-99.0); MEAN CORPUSCULAR HEMOGLOBIN 33.7 pg (27.0-31.0); MEAN CORPUSCULAR HGB CONC 34.8 g/dL (33.0-37.0); RBC 2.5 Mil/uL (3.80-5.20); RED CELL DISTRIBUTION WIDTH 26.8 % (11.5-14.5); WHITE BLOOD COUNT 6.6 K/uL (4.8-10.8)
[2017-02-28 08:01] VITALS: BP 115/73; PULSE 89; RESP 18; TEMP 98.8; O2SAT 100
[2017-02-28] MEDS: Divalproex 500 mg DR(BID formulation) PO SCH (08:50)
[2017-02-28] MEDS: DiphenhydrAMINE 50 mg/ml Inj IVP SCH (08:55)
--- NOTE | 2017-02-28 11:49 | CP.PCM.PN ---
Subjective - Date & Time of Evaluation Date of Evaluation: 02/28/17 Time of Evaluation: 11:51 - Subjective Subjective: transferred to telemetry for?seizure activity awake/alert and oriented x 3 asking for more pain meds and iv benadryl because she claims that seizure activity is due to pain no evidence of seizure activity at present advised eeg and neurology evaluation and that dilaudid will be held as well as benadryl she is to receive po percocet,prn until seizure eval is complete Objective - Vital Signs/Intake and Output Vital Signs (last 24 hours): Temp Pulse Resp BP Pulse Ox 98.8 F 89 18 115/73 100 02/28/17 08:01 02/28/17 08:01 02/28/17 08:01 02/28/17 08:01 02/28/17 08:01 - Medications Medications: Current Medications Aspirin (Aspirin Chewable) 81 mg PO DAILY [facility] Last Admin: 02/28/17 08:50 Dose: 81 mg Divalproex Sodium (Depakote Dr(*Bid*)) 1,000 mg PO BID [facility] Last Admin: 02/28/17 08:50 Dose: 1,000 mg Duloxetine HCl (Cymbalta) 30 mg PO DAILY [facility] Last Admin: 02/28/17 08:50 Dose: 30 mg Escitalopram Oxalate (Lexapro) 20 mg PO HS [facility] Last Admin: 02/27/17 22:47 Dose: 20 mg Famotidine (Pepcid) 20 mg PO DAILY PRN PRN Reason: Heartburn Folic Acid (Folic Acid) 1 mg PO DAILY [facility] Last Admin: 02/28/17 08:51 Dose: 1 mg Oxcarbazepine (Trileptal) 300 mg PO BID [facility] Last Admin: 02/28/17 08:51 Dose: 300 mg Trazodone HCl (Desyrel) 150 mg PO HS [facility] Last Admin: 02/27/17 22:47 Dose: 150 mg - Labs Labs: 02/28/17 05:40 02/26/17 08:15 PT 12.0 Seconds (9.8-13.1) 02/25/17 05:04 INR 1.1 (0.9-1.2) 02/25/17 05:04 APTT 27.5 Seconds (25.6-37.1) 02/25/17 05:04 - Constitutional Appears: No Acute Distress - Head Exam Head Exam: ATRAUMATIC, NORMAL INSPECTION, NORMOCEPHALIC - Eye Exam Eye Exam: EOMI, Normal appearance, PERRL Pupil Exam: NORMAL ACCOMODATION, PERRL - ENT Exam ENT Exam: Mucous Membranes Moist, Normal Exam - Neck Exam Neck Exam: Full ROM, Normal Inspection. absent: Lymphadenopathy - Respiratory Exam Respiratory Exam: Clear to Ausculation Bilateral, NORMAL BREATHING PATTERN - Cardiovascular Exam Cardiovascular Exam: REGULAR RHYTHM, +S1, +S2. absent: Murmur - GI/Abdominal Exam GI & Abdominal Exam: Soft, Normal Bowel Sounds. absent: Tenderness - Rectal Exam Rectal Exam: NORMAL INSPECTION - Extremities Exam Extremities Exam: Full ROM, Normal Capillary Refill, Normal Inspection. absent : Joint Swelling, Pedal Edema - Back Exam Back Exam: NORMAL INSPECTION - Neurological Exam Neurological Exam: Alert, Awake, CN II-XII Intact, Normal Gait, Oriented x3 - Psychiatric Exam Psychiatric exam: Normal Affect, Normal Mood - Skin Skin Exam: Dry, Intact, Normal Color, Warm Assessment and Plan - Assessment and Plan (Free Text) Assessment: ?seizure activity sickle cell dz anemia-stable ?dependence on dilaudid Plan: continue iv fluids percocet,prn neurology evaluation eeg to better evaluate seizure activity
--- NOTE | 2017-03-01 10:50 | CP.PCM.DIS ---
Provider - Provider Date of Admission: 02/25/17 06:13 Attending physician: Andrea Mcneil MD Time Spent in preparation of Discharge (in minutes): 30 Diagnosis - Discharge Diagnosis (1) Epileptic seizures Status: Acute (2) Sickle cell crisis Status: Acute (3) Sickle cell pain crisis Status: Acute Hospital Course - Lab Results Lab Results: Most Recent Lab Values WBC 6.6 K/uL (4.8-10.8) 02/28/17 05:40 RBC 2.50 Mil/uL (3.80-5.20) L 02/28/17 05:40 Hgb 8.4 g/dL (12.0-16.0) L 02/28/17 05:40 Hct 24.2 % (34.0-47.0) L 02/28/17 05:40 MCV 96.7 fl (81.0-99.0) 02/28/17 05:40 MCH 33.7 pg (27.0-31.0) H 02/28/17 05:40 MCHC 34.8 g/dL (33.0-37.0) 02/28/17 05:40 RDW 26.8 % (11.5-14.5) H 02/28/17 05:40 Plt Count 116 K/uL (130-400) L 02/28/17 05:40 MPV 7.5 fl (7.2-11.7) 02/26/17 08:15 Neut % (Auto) 46.0 % (50.0-75.0) L 02/26/17 08:15 Lymph % (Auto) 34.7 % (20.0-40.0) 02/26/17 08:15 [place] % (Auto) 14.5 % (0.0-10.0) H 02/26/17 08:15 Eos % (Auto) 3.9 % (0.0-4.0) 02/26/17 08:15 Baso % (Auto) 0.9 % (0.0-2.0) 02/26/17 08:15 Neut # 2.6 K/uL (1.8-7.0) 02/26/17 08:15 Lymph # 2.0 K/uL (1.0-4.3) 02/26/17 08:15 [place] # 0.8 K/uL (0.0-0.8) 02/26/17 08:15 Eos # 0.2 K/uL (0.0-0.7) 02/26/17 08:15 Baso # 0.1 K/uL (0.0-0.2) 02/26/17 08:15 Retic Count 7.7 % (0.5-1.5) H D 02/28/17 05:40 PT 12.0 Seconds (9.8-13.1) 02/25/17 05:04 INR 1.1 (0.9-1.2) 02/25/17 05:04 APTT 27.5 Seconds (25.6-37.1) 02/25/17 05:04 Sodium 139 mmol/l (132-148) 02/26/17 08:15 Potassium 4.1 MMOL/L (3.6-5.0) 02/26/17 08:15 Chloride 109 mmol/L (98-107) H 02/26/17 08:15 Carbon Dioxide 26 mmol/L (22-30) 02/26/17 08:15 Anion Gap 8 (10-20) L 02/26/17 08:15 BUN 8 mg/dl (7-17) 02/26/17 08:15 Creatinine 0.6 mg/dL (0.7-1.2) L 02/26/17 08:15 Est GFR ( Amer) > 60 02/26/17 08:15 Est GFR (Non-Af Amer) > 60 02/26/17 08:15 POC Glucose (mg/dL) 111 mg/dL (65-110) H 02/27/17 21:15 Random Glucose 92 mg/dL (65-105) 02/26/17 08:15 Calcium 8.8 mg/dL (8.4-10.2) 02/26/17 08:15 Troponin I < 0.0120 ng/mL (0.00-0.120) 02/25/17 02:53 Urine Color [place] (YELLOW) 02/25/17 02:30 Urine Clarity Slighty-cloudy (Clear) 02/25/17 02:30 Urine pH 6.0 (5.0-8.0) 02/25/17 02:30 Ur Specific [place] 1.014 (1.003-1.030) 02/25/17 02:30 Urine Protein >=500 mg/dL (NEGATIVE) 02/25/17 02:30 Urine Glucose (UA) Neg mg/dL (Normal) 02/25/17 02:30 Urine Ketones Negative mg/dL (NEGATIVE) 02/25/17 02:30 Urine Blood Small (NEGATIVE) 02/25/17 02:30 Urine Nitrate Negative (NEGATIVE) 02/25/17 02:30 Urine Bilirubin Negative (NEGATIVE) 02/25/17 02:30 Urine Urobilinogen 4.0 mg/dL (0.2-1.0) H 02/25/17 02:30 Ur Leukocyte Esterase Neg Rahul/uL (Negative) 02/25/17 02:30 Urine RBC (Auto) 4 /hpf (0-3) H 02/25/17 02:30 Urine Microscopic WBC 3 /hpf (0-5) 02/25/17 02:30 Ur Squamous Epith Cells 1 /hpf (0-5) 02/25/17 02:30 Urine Bacteria Rare (<OCC) 02/25/17 02:30 Hyaline Casts 3-5 /hpf (0-2) H 02/25/17 02:30 Urine Opiates Screen Positive (NEGATIVE) H 02/25/17 02:30 Urine Methadone Screen Negative (NEGATIVE) 02/25/17 02:30 Ur Barbiturates Screen Negative (NEGATIVE) 02/25/17 02:30 Ur Phencyclidine Scrn Negative (NEGATIVE) 02/25/17 02:30 Ur Amphetamines Screen Negative (NEGATIVE) 02/25/17 02:30 U Benzodiazepines Scrn Negative (NEGATIVE) 02/25/17 02:30 U Oth Cocaine Metabols Negative (NEGATIVE) 02/25/17 02:30 U Cannabinoids Screen Negative (NEGATIVE) 02/25/17 02:30 Blood Type B POSITIVE 02/25/17 02:53 Blood Type Confirm B POSITIVE 02/25/17 23:03 Antibody Screen Negative 02/25/17 02:53 BBK History Checked No verified bt 02/25/17 02:53 - Hospital Course Hospital Course: FREQUENTLY REQUESTING FOR IV DILAUDID AND BENADRYL REFUSED TO STAY IN HOSPITAL FOR FURTHER RX IF PAIN MEDS AND BENADRYL ARE SWITCHED TO PO SIGNED OUT AMA Discharge Exam - Head Exam Head Exam: ATRAUMATIC, NORMAL INSPECTION, NORMOCEPHALIC - Eye Exam Eye Exam: EOMI, Normal appearance, PERRL Pupil Exam: NORMAL ACCOMODATION, PERRL - GI/Abdominal Exam GI & Abdominal Exam: Normal Bowel Sounds - Rectal Exam Rectal Exam: NORMAL INSPECTION - Neurological Exam Neurological exam: Alert, CN II-XII Intact, Normal Gait, Oriented x3, Reflexes Normal - Psychiatric Exam Psychiatric exam: Normal Affect, Normal Mood - Skin Skin Exam: Dry, Intact, Normal Color, Warm Discharge Plan - Follow Up Plan Condition: STABLE Disposition: AGAINST MEDICAL ADVICE Instructions: Iron Rich Diet (DC), Sickle Cell Crisis (DC) Additional Instructions: PT SIGNED OUT AGAINST MEDICAL ADVISE Referrals: Andrea Mcneil MD [Staff Provider] -
== END 2017-02-28 12:00 | disposition left against medical advice (07) | DRG 395 ==
LOC: H.ER 01:25 → H.EROBSV 02:30 → OBSVTOIN 06:13 → H.ERHOLD 06:13 → UNDOADMIN 06:13 → H.MEDSURG1 15:00 → H.TEL 02-27 19:45
PROVIDERS: ADMIT Internal Medicine Pulmonary Disease; ATTEND Internal Medicine Pulmonary Disease
DX: D57.00 Hb-SS disease with crisis, unspecified (principal); D69.6 Thrombocytopenia, unspecified; W19.XXXA Unspecified fall, initial encounter; G40.909 Epilepsy, unspecified, not intractable, without status epilepticus; Z86.73 Personal history of transient ischemic attack (TIA), and cerebral infarction without residual deficits; J45.909 Unspecified asthma, uncomplicated; Z90.49 Acquired absence of other specified parts of digestive tract

== ENCOUNTER 2017-04-29 04:55 | Emergency (ER) | payer MEDICAID ==
[2017-04-29 05:17] VITALS: TEMP 98
[2017-04-29] MEDS ORDERED: Sodium Chloride 0.9% 1,000 ML IV STA (05:40)
--- NOTE | 2017-04-29 05:58 | ED PDOC ---
HPI: General Adult Time Seen by Provider: 04/29/17 05:33 Chief Complaint (Nursing): Seizure Chief Complaint (Provider): Body Aches, Aura History Per: Patient History/Exam Limitations: no limitations Onset/Duration Of Symptoms: Days Have you had recent travel within the past 21 days to any of the following countries: [place], [place], [place] or [place]?: No Current Symptoms Are (Timing): Still Present Severity: Moderate Additional History Per: Patient Additional Complaint(s): 27 y/o female with history of seizure, avascular necrosis, and sickle cell, here complaining of generalized body aches for the last few days. Her Dilaudid regimen did not improve her pain. She also reports subjective fever a few days ago that is resolved, and diarrhea. No vomiting. Patient also reports that she did have an aura tonight consistent with her history of seizures, but she has not had a seizure. No other complaints. Past Medical History Vital Signs: Last Vital Signs Temp 98.0 F 04/29/17 05:09 Pulse 92 H 04/29/17 05:09 Resp 16 04/29/17 05:09 BP 131/84 04/29/17 05:09 Pulse Ox 99 04/29/17 06:00 - Medical History PMH: Asthma, Seizures, Sickle Cell Disease, TIA Denies: Chronic Kidney Disease - Surgical History Surgical History: No Surg Hx - Family History Family History: States: Unknown Family Hx - Social History Current smoker - smoking cessation education provided: No Ex-Smoker (has not smoked in the last 12 months): No Alcohol: None - Immunization History Hx Tetanus Toxoid Vaccination: Yes Hx Influenza Vaccination: Yes Hx Pneumococcal Vaccination: Yes - Home Medications Home Medications: Ambulatory Orders Medication Instructions Recorded Aspirin 81 mg PO DAILY 12/20/16 DULoxetine [Cymbalta] 30 mg PO DAILY 12/20/16 DiphenhydrAMINE [Benadryl] 50 mg PO Q4H PRN 12/20/16 Divalproex [Depakote DR] 1,000 mg PO BID 12/20/16 Escitalopram [Lexapro] 20 mg PO HS 12/20/16 Famotidine [Pepcid] 20 mg PO DAILY PRN 12/20/16 Folic Acid 1 mg PO DAILY 12/20/16 HYDROmorphone [Dilaudid] 4 mg PO Q4H PRN 12/20/16 Lacosamide [Vimpat] 600 mg PO BID 12/20/16 Medroxyprogesterone Acetate 150 mg IM Q90D 12/20/16 [Depo-Provera] Oxcarbazepine [Trileptal] 300 mg PO BID 12/20/16 Trazodone HCl 150 mg PO HS 12/20/16 - Allergies Allergies/Adverse Reactions: Allergies Allergy/AdvReac Type Severity Reaction Status Date / Time ANOOP Inhibitors Allergy SWELLING Verified 12/20/16 23:38 ketorolac [From Toradol] Allergy URTICARIA Verified 12/20/16 23:38 levetiracetam [From Keppra] Allergy HEADACHE Verified 12/20/16 23:38 morphine Allergy URTICARIA Verified 12/20/16 23:38 hydroxyurea AdvReac HEADACHE Verified 12/20/16 23:38 Review of Systems ROS Statement: Except As Marked, All Systems Reviewed And Found Negative Constitutional: Positive for: Fever Gastrointestinal: Positive for: Diarrhea Musculoskeletal: Positive for: Neck Pain, Shoulder Pain, Arm Pain, Back Pain, Hand Pain, Leg Pain, Foot Pain Neurological: Negative for: Seizures Physical Exam - Reviewed Nursing Documentation Reviewed: Yes Vital Signs Reviewed: Yes - Physical Exam Appears: Positive for: Well, Non-toxic, No Acute Distress Head Exam: Positive for: ATRAUMATIC, NORMAL INSPECTION, NORMOCEPHALIC Skin: Positive for: Normal Color, Warm, DRY Eye Exam: Positive for: EOMI, Normal appearance, PERRL ENT: Positive for: Normal ENT Inspection Neck: Positive for: Normal, Painless ROM Cardiovascular/Chest: Positive for: Regular Rate, Rhythm Respiratory: Positive for: CNT, Normal Breath Sounds Gastrointestinal/Abdominal: Positive for: Normal Exam, Bowel Sounds, Soft Back: Positive for: Normal Inspection Extremity: Positive for: Normal ROM Neurologic/Psych: Positive for: Alert, Oriented - Laboratory Results Result Diagrams: 04/29/17 05:50 04/29/17 05:50 - ECG O2 Sat by Pulse Oximetry: 99 Medical Decision Making Medical Decision Making: Impression: - Labs - IVF - Dilaudid Scribe Attestation: Documented by [place], acting as a scribe for Alexandre Thorne MD. Provider Scribe Attestation: All medical record entries made by the Scribe were at my direction and personally dictated by me. I have reviewed the chart and agree that the record accurately reflects my personal performance of the history, physical exam, medical decision making, and the department course for this patient. I have also personally directed, reviewed, and agree with the discharge instructions and disposition. Disposition - Disposition Forms: [employer] (Scottish)
[2017-04-29 06:06] LABS: BASO % 0.5 % (0.0-2.0); EOS % 0.3 % (0.0-4.0); LYMPH % 30.6 % (20.0-40.0); MEAN CORPUSCULAR HEMOGLOBIN 31.5 pg (27.0-31.0); MEAN CORPUSCULAR HGB CONC 33.2 g/dL (33.0-37.0); MEAN PLATELET VOLUME 8.2 fl (7.2-11.7); MONO # 1.7 K/uL (0.0-0.8); MONO % 17.4 % (0.0-10.0); NEUT % 51.2 % (50.0-75.0); RED CELL DISTRIBUTION WIDTH 22.2 % (11.5-14.5); WHITE BLOOD COUNT 9.7 K/uL (4.8-10.8)
[2017-04-29] MEDS ORDERED: DiphenhydrAMINE 50 mg/ml Inj IVP STA (06:12)
[2017-04-29 06:25] LABS: ALB/GLOB RATIO 1.1 (1.0-2.1); ALKALINE PHOSPHATASE 136 U/L (38-126); ALT/SGPT 17 U/L (9-52); AST/SGOT 45 U/L (14-36); BILIRUBIN,TOTAL 1.1 mg/dl (0.2-1.3); BLOOD UREA NITROGEN 10 mg/dl (7-17); CALCIUM 9.6 mg/dL (8.4-10.2); CARBON DIOXIDE 21 mmol/L (22-30); CHLORIDE 109 mmol/L (98-107); GFR AFRICAN-AMERICAN > 60; GLUCOSE,RANDOM 116 mg/dL (65-105); POTASSIUM 3.4 MMOL/L (3.6-5.0); SODIUM 147 mmol/l (132-148); TOTAL PROTEIN 7.9 G/DL (6.3-8.2)
[2017-04-29] MEDS ORDERED: Potassium Chloride 20 mEq ER Tab PO ONE ×2 (06:38→07:16)
--- NOTE | 2017-04-29 07:13 | ED PDOC ---
- Laboratory Results Result Diagrams: 04/29/17 05:50 04/29/17 05:50 - ECG O2 Sat by Pulse Oximetry: 99 (RA) Pulse Ox Interpretation: Normal Medical Decision Making Medical Decision Makin:00 Patient was signed out to me by Alexandre Thorne MD pending labs, reevaluation and final disposition. Pt requesting more pain medication. 08:15 Pt requesting more Benadryl with Dilaudid dose. 08:20 Pt wants to leave, IV removed. Left prior to discussion about labs and prior to signing discharge papers. Scribe Attestation: Documented by Mayr Fountain, acting as a scribe for Mary Sow MD. Provider Scribe Attestation: All medical record entries made by the Scribe were at my direction and personally dictated by me. I have reviewed the chart and agree that the record accurately reflects my personal performance of the history, physical exam, medical decision making, and the department course for this patient. I have also personally directed, reviewed, and agree with the discharge instructions and disposition. Disposition - Clinical Impression Clinical Impression: Sickle cell anemia with pain - POA Present On Arrival: None - Disposition Disposition: Left W/O Treatment Disposition Time: 08:30 Condition: STABLE Instructions: Sickle Cell Anemia (DC) Forms: [employer] (Azerbaijani)
[2017-04-29] MEDS ORDERED: HYDROmorphone 0.5 mg/0.5 ml ISec ONE (08:08)
[2017-04-29 08:09] LABS: RETIC% 4.2 % (0.5-1.5)
[2017-04-29 08:15] VITALS: BP 120/76; PULSE 83; RESP 17
[2017-04-29 08:33] VITALS: O2SAT 99
== END 2017-04-29 08:30 | disposition home or self-care (01) ==
LOC: H.ER 04:55
DX: D57.219 Sickle-cell/Hb-C disease with crisis, unspecified (principal)
CPT/HCPCS: 80053; 82948; 85025; 85044; 96361; 96374; 96375; 96376; 99285; J1170; J1200; J2405; J7040

== ENCOUNTER 2018-05-06 17:46 | Emergency (ER) | payer MEDICAID ==
[2018-05-06] MEDS ORDERED: Sodium Chloride 0.9% 1,000 ML IV STA (18:37)
--- NOTE | 2018-05-06 19:05 | ED PDOC ---
HPI: Seizure Time Seen by Provider: 05/06/18 17:58 Chief Complaint (Nursing): Seizure Chief Complaint (Provider): Seizure History Per: Patient History/Exam Limitations: no limitations Additional Complaint(s): 28 year old female with a hx of sickle cell and epilepsy presents to the ED via EMS after having a witnessed seizure on a bus prior to arrival. She reports being recently intubated secondary to her uncontrollable epilepsy, with five other times in the past. Patient notes last night and this morning she also had a fever, and progressively worsening joint and back pain, typical with her sickle cell. However, she does admit to taking all of her medications including dilaudid for pain and all seizure meds. At this time, she is also complaining of right sided head pain, to which she was informed she was banging against the bus window during her witnessed approx 5 minute seizure. Denies tongue bite, nausea, vomiting, neck pain, extremity pain, and pt is not in a post-ictal state. PMD: at [facility] Past Medical History Reviewed: Historical Data, Nursing Documentation, Vital Signs Vital Signs: Last Vital Signs Temp 99.3 F 05/06/18 17:50 Pulse 94 H 05/06/18 17:50 Resp 16 05/06/18 17:50 BP 110/73 05/06/18 17:50 Pulse Ox 97 05/06/18 17:50 - Medical History PMH: Asthma, Seizures, Sickle Cell Disease, TIA Denies: Chronic Kidney Disease - Surgical History Other surgeries: left chest wall port - Family History Family History: States: Unknown Family Hx - Social History Current smoker - smoking cessation education provided: No Alcohol: None Drugs: Denies - Immunization History Hx Tetanus Toxoid Vaccination: Yes Hx Influenza Vaccination: Yes Hx Pneumococcal Vaccination: Yes - Home Medications Home Medications: Ambulatory Orders Medication Instructions Recorded DULoxetine [Cymbalta] 30 mg PO DAILY 12/20/16 DiphenhydrAMINE [Benadryl] 50 mg PO Q4H PRN 12/20/16 Divalproex [Depakote DR] 1,000 mg PO BID 12/20/16 Escitalopram [Lexapro] 20 mg PO HS 12/20/16 Famotidine [Pepcid] 20 mg PO DAILY PRN 12/20/16 HYDROmorphone [Dilaudid] 4 mg PO Q4H PRN 12/20/16 Lacosamide [Vimpat] 600 mg PO BID 12/20/16 Medroxyprogesterone Acetate 150 mg IM Q90D 12/20/16 [Depo-Provera] Oxcarbazepine [Trileptal] 300 mg PO BID 12/20/16 RX: Aspirin 81 mg PO DAILY 12/20/16 RX: Folic Acid 1 mg PO DAILY 12/20/16 RX: Trazodone HCl 150 mg PO HS 12/20/16 - Allergies Allergies/Adverse Reactions: Allergies Allergy/AdvReac Type Severity Reaction Status Date / Time ANOOP Inhibitors Allergy SWELLING Verified 12/20/16 23:38 ketorolac [From Toradol] Allergy URTICARIA Verified 12/20/16 23:38 levetiracetam [From Keppra] Allergy HEADACHE Verified 12/20/16 23:38 morphine Allergy URTICARIA Verified 12/20/16 23:38 hydroxyurea AdvReac HEADACHE Verified 12/20/16 23:38 Review of Systems ROS Statement: Except As Marked, All Systems Reviewed And Found Negative Constitutional: Positive for: Fever, Other (right sided head pain) ENT: Negative for: Other (tongue bite) Gastrointestinal: Negative for: Nausea, Vomiting Musculoskeletal: Positive for: Back Pain, Other (joint pain). Negative for: Neck Pain, Arm Pain, Leg Pain Neurological: Positive for: Seizures (witnessed) Physical Exam - Reviewed Nursing Documentation Reviewed: Yes Vital Signs Reviewed: Yes - Physical Exam Appears: Positive for: No Acute Distress Head Exam: Positive for: ATRAUMATIC, NORMOCEPHALIC Skin: Positive for: Normal Color, Warm, Dry. Negative for: Rash Eye Exam: Positive for: Normal appearance ENT: Positive for: Normal ENT Inspection Neck: Positive for: Normal, Painless ROM, Supple Cardiovascular/Chest: Positive for: Regular Rate, Rhythm Respiratory: Positive for: Normal Breath Sounds. Negative for: Accessory Muscle Use, Respiratory Distress Gastrointestinal/Abdominal: Positive for: Normal Exam, Soft. Negative for: Tenderness Back: Positive for: Normal Inspection Extremity: Positive for: Normal ROM. Negative for: Tenderness (to palpation of joints), Swelling Neurologic/Psych: Positive for: Alert, Oriented (x3). Negative for: Motor/Sensory Deficits - Laboratory Results Result Diagrams: 05/06/18 18:55 05/06/18 18:55 - ECG O2 Sat by Pulse Oximetry: 97 (RA) Pulse Ox Interpretation: Normal Medical Decision Making Medical Decision Making: Time: 1836 Initial Impression: Seizure due to sickle cell status with reported recent fever, will work up for infection Initial Plan: --CMP --CBC --Reticulocyte count --CXR --Dilaudid 8mg PO --Normal saline IV --Reevaluation 2224 Labs and CXR reviewed to show no clinical abnormalities. Pt reports improved pain after 2 rounds of morphine with no allergic reaction noted. Pt currently has no neurological deficits or seizure activity. She states she has all her medications at home and does not need any refills, and will follow up at [facility] 05/08. Vitals stable, pt is to be discharged. Scribe Attestation: Documented by Angela Hightower, acting as a scribe for Fanny Roblero MD. Provider Scribe Attestation: All medical record entries made by the Scribe were at my direction and personally dictated by me. I have reviewed the chart and agree that the record accurately reflects my personal performance of the history, physical exam, medical decision making, and the department course for this patient. I have also personally directed, reviewed, and agree with the discharge instructions and disposition. Disposition - Clinical Impression Clinical Impression: Seizure disorder, Sickle cell pain crisis - Disposition Disposition: Routine/Home Disposition Time: 22:25 Condition: IMPROVED Additional Instructions: Take all home medications as prescribed by your primary medical doctor. Return to the emergency department if symptoms worsen. Instructions: Seizures, Adult (DC), Sickle Cell Disease (DC) Forms: [employer] (Formerly [employer]) (Irish) Print Language: SYRIAC
[2018-05-06 19:07] LABS: HEMOGLOBIN 10.4 g/dL (12.0-16.0); MEAN CELL VOLUME 96.8 fl (81.0-99.0); MEAN CORPUSCULAR HEMOGLOBIN 32.9 pg (27.0-31.0); RBC 3.15 Mil/uL (3.80-5.20); RED CELL DISTRIBUTION WIDTH 23.6 % (11.5-14.5); WHITE BLOOD COUNT 6.4 K/uL (4.8-10.8)
[2018-05-06 19:17] LABS: ALBUMIN 3.9 g/dL (3.5-5.0); ALT/SGPT 23 U/L (9-52); AST/SGOT 53 U/L (14-36); BLOOD UREA NITROGEN 10 mg/dl (7-17); CALCIUM 9.8 mg/dL (8.4-10.2); GFR NON-AFRICAN AMERICAN > 60
[2018-05-06] MEDS ORDERED: DiphenhydrAMINE 50 mg/ml Inj IVP STA ×2 (21:28→22:09)
[2018-05-06] MEDS ORDERED: Morphine 4 MG/ML VIAL ONE ×2 (21:32→22:13)
[2018-05-06] MEDS: Morphine 4 MG/ML VIAL IVP STA ×2 (21:42→22:20)
[2018-05-06] MEDS ORDERED: Morphine 4 MG/ML VIAL IVP STA (22:08)
[2018-05-06] MEDS ORDERED: DiphenhydrAMINE 50 mg/ml Inj ONE (22:13)
[2018-05-07 00:49] VITALS: BP 120/68; PULSE 88; RESP 17; TEMP 98.8
--- NOTE | 2018-05-07 10:29 | RAD ---
Date of service: 05/06/2018 HISTORY: sickle cell with fever COMPARISON: 02/25/2017 TECHNIQUE: Chest PA and lateral FINDINGS: LUNGS: No active pulmonary disease. PLEURA: No significant pleural effusion identified. No pneumothorax apparent. CARDIOVASCULAR: Normal heart size. Right central venous infusion port new since prior examination. Left subclavian central venous catheter has been removed. OSSEOUS STRUCTURES: No significant abnormalities. VISUALIZED UPPER ABDOMEN: Normal. OTHER FINDINGS: None. IMPRESSION: New right central venous infusion port. No pneumothorax. Otherwise unremarkable.
[2018-05-09 14:25] VITALS: O2SAT 97
== END 2018-05-06 22:52 | disposition home or self-care (01) ==
LOC: H.ER 17:46
DX: G40.909 Epilepsy, unspecified, not intractable, without status epilepticus (principal); D57.00 Hb-SS disease with crisis, unspecified; Z86.73 Personal history of transient ischemic attack (TIA), and cerebral infarction without residual deficits
CPT/HCPCS: 71046; 80053; 85027; 85044; 87040; 96374; 96375; 96376; 99285; J1200; J2270